=== PATIENT | female | born 1980 | race Caucasian/White ===

== ENCOUNTER 2022-01-22 07:31 | Outpatient (CLI) | payer OTHER, SELFPAY ==
--- OUTSIDE RECORDS SUMMARY | 2022-01-22 07:33 | XMS_ITS | Clinical Summary ---
:1980 Author Organization [place] Address [address] [place] [address] Care Team Providers Name Role Phone No Ref-Primary, Physician Primary Care Provider [phone] Misha Hill PA-C Unavailable Allergies Active Allergy Reactions Severity Noted Date Comments Dust Mite Extract Other (See Comments) 03/25/2008 Ca ts,grass,trees, pollen Medications Medication Sig Dispensed Refills Start Date End Date Status NO ACTIVE MEDICATIONS 0 Active buPROPion (WELLBUTRIN Take 1 tablet (150 30 tablet 1 0 Active XL) 150 MG 24 hr mg) by mouth every tabletIndications: morning Encounter for smoking cessation counseling, Mild episode of recurrent major depressive disorder (H) Active Problems Problem Noted Date Major depression, recurrent 05/04/2019 Overview: Created by Conversion Replacement Utility updated for latest I MO load Insomnia 05/04/2019 Overview: Created by Conversion Anxiety state 05/04/2019 Overview: Created by Conversion Replacement Utility updated for latest I MO load Tubal ligation status 08/15/2015 Anemia of in second trimester 03/21/2015 related carpal tunnel syndrome, antepartum 1 05/18/2014 Abnormal glucose affecting 03/18/2015 Overview: Passed 3hr GTT , first 11/05/2014 Overview: Boy. circ in hospital. Unplanned. Charles lewis BTL, consent signed 04/15/2015 with Juliette Shay MD H/O ROBI Overview: LEEP - In her 20's ? 2010 and 2014 NIL paps. 06/02/19 NIL pap, neg HPV. Plan cotest in 1 year. Immunizations Name Administration Dates Next Due DT (PEDS <7y) 11/24/2004 FLU 6-35 months 02/15/2009 Influenza (IIV3) PF 02/16/2010 Influenza Vaccine IM > 6 months Valent IIV4 02/11/2015 (Alfuria,Fluzone) Td (Adult), Adsorbed 11/24/2004 Tdap (Adult) Unspecified Formulation 04/15/2015, 11/24/2004 Family History Medical History Relation Comments Diabetes Maternal Aunt Lung Cancer Maternal Grandfather Lung Cancer Maternal Grandmother Diabetes Maternal Uncle Diabetes Mother Relation Status Comments Brother Alive Father Alive Maternal Aunt Maternal Grandfather Maternal Grandmother Maternal Uncle Mother Alive Son Alive Social History Tobacco Use Types Packs/Day Years Used Date Current Every Day Smoker 0 Smokeless Tobacco: Never Used Tobacco Cessation: Ready to Quit: Yes; C ounseling Given: Yes Comments: 1/ ppd. Patient is actively t rying to quit Alcohol Use Standard Drinks/Week Comments Yes 0 (1 standard drink = 0.6 oz pure alcoho l) occasionally Alcohol Habits Answer Date Recorded How often do you have a drink containing alcohol? Not asked How many drinks containing alcohol do you have on a Not aske d typical day when you are drinking? How often do you have six or more drinks on one occasion? No t asked Comment: occasionally 03/20/2019 Sex Assigned at Date Recorded Not on file Last Filed Vital Signs Vital Sign Reading Time Taken Comments Blood Pressure 117/68 06/18/2019 8:03 AM DIFFERENTIAL SPECIALIST Pulse 83 06/18/2019 8:03 AM DIFFERENTIAL SPECIALIST Temperature 36.6 ??C (97.9 ??F) 06/18/2019 8:03 AM DIFFERENTIAL SPECIALIST Respiratory Rate 14 06/18/2019 8:03 AM DIFFERENTIAL SPECIALIST Oxygen Saturation 100% 06/02/2019 7:43 AM DIFFERENTIAL SPECIALIST Inhaled Oxygen Concentration - - Weight 98.7 kg (217 lb 8 oz) 06/18/2019 8:03 AM DIFFERENTIAL SPECIALIST Height 177.8 cm (5' 10) 06/02/2019 7:43 AM DIFFERENTIAL SPECIALIST Body Mass Index 31.21 06/02/2019 7:43 AM DIFFERENTIAL SPECIALIST Plan of Treatment Health Maintenance Due Date Last Done Comments ADVANCE CARE PLANNING 1980 ANNUAL REVIEW OF HM ORDERS 1980 COVID-19 Vaccine (#1) 02/08/1980 Pneumococcal Vaccine: 08/07/1985 Pediatrics (0 to 5 Years) and At-Risk Patients (6 to 64 Years) (1 - PCV) HIV SCREENING 08/07/1994 HEPATITIS C SCREENING 08/07/1997 PHQ-9 12/01/2019 06/02/2019 HPV FOLLOW-UP 06/02/2020 06/02/2019 PAP FOLLOW-UP 06/02/2020 06/02/2019, 07/12/2010 PREVENTIVE CARE VISIT 06/02/2020 06/02/2019 INFLUENZA VACCINE (#1) 2022 03/20/2019 (Declined), 02/11/2015, 02/16/2010, Additional history exists DTAP/TDAP/TD IMMUNIZATION 04/15/2025 04/15/2015, 11/24/2004 , (2 - Td or Tdap) 11/24/2004 DEPRESSION ACTION PLAN Completed 06/02/2019 HEPATITIS B IMMUNIZATION Aged Out No long er eligible based on patient 's age to complete this topic IPV IMMUNIZATION Aged Out No longer eligi ble based on patient 's age to complete this topic MENINGITIS IMMUNIZATION Aged Out No longe r eligible based on patient 's age to complete this topic Insurance Payer Benefit Plan / Subscriber ID Effective Dates Phone Addre ss Type Group BCBS BCBS OF [place] [id number] 2018-Stanislav [phone] [address] [address] Indemnity t 0 [place] [address] Care Teams Tech Ed Teacher Relationship Specialty Start Date End Date No Ref-Primary, Physician PCP - General 03/13/19 Misha Hill PA-C Assigned PCP 11/25/20 [id number] JANIE CORDOVA [id number]
--- OUTSIDE RECORDS SUMMARY | 2022-01-22 07:33 | XMS_ITS | Clinical Summary ---
:1980 Author Organization [facility] [place] [address] Care Team Providers Name Role Phone Stephany Stanford MD Primary Care Provider Allergies Active Allergy Reactions Severity Noted Date Comments House Dust Runny Nose 03/25/2008 Cats,grass,tree s, pollen Medications No known medications Active Problems Problem Noted Date Tubal ligation status 08/15/2015 Anemia of in second trimester 03/21/2015 related carpal tunnel syndrome, antepartum 1 05/18/2014 Abnormal glucose affecting 03/18/2015 Overview: Passed 3hr GTT , first 11/05/2014 Overview: Boy. circ in hospital. Unplanned. Charles lewis BTL, consent signed 04/15/2015 with Juliette Shay MD Immunizations Name Administration Dates Next Due Influenza, IIV4 02/11/2015 Td (Age >=7 Years) 11/24/2004 Tdap 04/15/2015 Family History Medical History Relation Name Comments Unknown Father Diabetes Mother Hyperlipidemia Mother Hypertension Mother Relation Name Status Comments Father Mother Social History Tobacco Use Types Packs/Day Years Used Date Former Smoker Smokeless Tobacco: Former User Q uit: 10/08/2014 Tobacco Cessation: Counseling Given: Yes Alcohol Use Standard Drinks/Week Comments No 0 (1 standard drink = 0.6 oz pure alcoho l) Sex Assigned at Date Recorded Not on file Obstetrics History Para Term AB IAB SAB Ectopic Multiple Living Live Births 3 1 1 2 1 1 1 1 Date Outcome GA Total Labor/2nd/3rd Weight Sex Delivery Anes PTL Shari A 1 A5 Name Clin Labor 2008 SAB 5w0 d 2010 IAB 10w 0d Comments: infection following D/C 07/03/2015 Term 3.86 kg (8 M N Living Cong shay with lb 8 oz) D ohm-Murphy Last Filed Vital Signs Vital Sign Reading Time Taken Comments Blood Pressure 111/58 08/15/2015 10:01 AM CDT Pulse 74 08/15/2015 10:01 AM CDT Temperature 36.8 ??C (98.2 ??F) 02/11/2015 10:45 AM CDT Respiratory Rate 16 02/19/2011 5:22 PM CDT Oxygen Saturation 98% 02/11/2015 10:45 AM CDT Inhaled Oxygen Concentration - - Weight 105 kg (231 lb 6.4 oz) 07/01/2015 3:00 PM BINDER ROLLER Height 177 cm (5' 9.69) 05/20/2015 4:13 PM BINDER ROLLER Body Mass Index 33.5 05/20/2015 4:13 PM BINDER ROLLER Plan of Treatment Health Maintenance Due Date Last Done Comments COVID-19 vaccine series (#1) 02/08/1980 Hepatitis C screening for age 18-79 08/07/1997 BMI (ht and wt on same day) for age 18+ 05/20/2016 05/20/19 16 Depression screening for age 12+ 08/14/2016 08/15/2015, 12/2015 Pap test for age 21-65 12/03/2017 12/03/2014 Influenza for age 9-49 01/11/2022 02/11/2015 Tetanus booster 04/15/2025 04/15/2015, 11/24/2004 Tdap Completed 04/15/2015 Results Not on filefrom Last 3 Months Insurance Payer Benefit Plan / Subscriber ID Effective Dates Phone Addre ss Type Group MEDICA [place] MED[place] CHOICE [id number] 2014-[place] [address] [address] [place] [address] Advance Directives Latest Code Status on File Code Status Date Activated Date Inactivated Comments Full Code 03/26/2008 7:25 AM 03/26/2008 3:55 PM Care Teams Right Of Way Appraiser Relationship Specialty Start Date End Date Stephany Stanford MD PCP - General Cardiovascular Disease 12/03/07
--- OUTSIDE RECORDS SUMMARY | 2022-01-22 07:33 | XMS_ITS | Encounter Summary ---
:1980 Author Organization [place] Address [address] [place] [address]. [place] [address] Care Team Providers Name Role Phone No Ref-Primary, Physician Primary Care Provider [phone] Misha Hill PA-C Unavailable [phone] Encounter Details Date Type Department Care Team Description 06/24/2019 Travel Social History Tobacco Use Types Packs/Day Years Used Date Current Every Day Smoker 0 Smokeless Tobacco: Never Used Comments: 1/2 ppd. Patient is actively t rying to [...] Assigned at Date Recorded Not on file documented as of this encounter Plan of Treatment Not on filedocumented as of this encounter Visit Diagnoses Not on filedocumented in this encounter Additional Health Concerns Assessment Noted Time PHQ-9 Depression Total Score: 6 06/02/2019 8:28 AM STAFF REPORTER documented as of this encounter Care Teams Lay Out Former Relationship Specialty Start Date End Date No Ref-Primary, Physician PCP - General 03/13/19 Misha Hill PA-C Assigned PCP 06/07/19 10/10/19 [address] [place] [address] documented as of this encounter
--- OUTSIDE RECORDS SUMMARY | 2022-01-22 07:33 | XMS_ITS | Encounter Summary ---
:1980 Author Organization [place] Address [address] [place] [address] Care Team Providers Name Role Phone No Ref-Primary, Physician Primary Care Provider [phone] Kyung Thornton REFORMATORY ATTENDANT UROLOGIC NURSE Unavailable [phone] Encounter Details Date Type Department Care Team Description 10/12/2020 [facility] Provider, Histor ical Social History Tobacco Use Types Packs/Day Years [...] Not on filedocumented as of this encounter Procedures Procedure Name Priority Date/Time Associated Comments Diagnosis US PELVIC Routine 07/18/2010 12:00 Results for this TRANSABDOMINAL AM STEAM SHOVEL OPERATOR procedure are in the results section. US TRANSVAGINAL PELVIC Routine 07/18/2010 12:00 R esults for this NON-OB AM STEAM SHOVEL OPERATOR procedure are i n the results section. documented in this encounter Results US Pelvis Complete without Transvaginal (07/18/2010 12:00 AM STEAM SHOVEL OPERATOR) Anatomical Region Laterality Modality Abdomen/Pelvis Other Specimen (Source) Anatomical Location Collection Method / Collectio n Time Received Time / Laterality Volume Narrative 07/18/2010 12:00 AM STEAM SHOVEL OPERATOR See Historical Hospital Medical Record f or documentation Procedure Note Provider, Historical - 10/12/2020Formatt ing of this note might be different from the original. See Historical Hospital Medical Record f or documentation Historical Provider IMG US ORDERABLES US Transvaginal Non OB (07/18/2010 12:00 AM STEAM SHOVEL OPERATOR) Anatomical Region Laterality Modality Abdomen/Pelvis Other Specimen (Source) Anatomical Location Collection Method / Collectio n Time Received Time / Laterality Volume Narrative 07/18/2010 12:00 AM STEAM SHOVEL OPERATOR See Historical Hospital Medical Record f or documentation Procedure Note Provider, Historical - 10/12/2020Formatt ing of this note might be different from the original. See Historical Hospital Medical Record f or documentation Historical Provider IMG US ORDERABLES documented in this encounter Visit Diagnoses Not on filedocumented in this encounter Additional Health Concerns Assessment Noted Time PHQ-9 Depression Total Score: 6 06/02/2019 8:28 AM STEAM SHOVEL OPERATOR documented as of this encounter Care Teams Commercial Credit Head Relationship Specialty Start Date End Date No Ref-Primary, Physician PCP - General 03/13/19 Kyung Thornton APRN UROLOGIC NURSE Assigned PCP 10/11/19 11/24/20 [id number] JANIE CORDOVA [id number] documented as of this encounter
--- OUTSIDE RECORDS SUMMARY | 2022-01-22 07:33 | XMS_ITS | Encounter Summary ---
:1980 Author Organization [place] Address [address] [place] [address]. [place] [address] Care Team Providers Name Role Phone No Ref-Primary, Physician Primary Care Provider [phone] Misha Hill PA-C Unavailable [phone] Reason for Visit Reason Onset Date Comments Sinus Problem 09/29/2019 Encounter Details Date Type Department Care Team Description 09/29/2019 E-Visit [facility] Kyung Thornton, Sinus Problem [place] ENTHONE SOLDER STRIPPER ELECTRICAL ENGINEERING DRAFTING OFFICER [facility], [address] [place] [address] [address] [place] [address] [place] [address] [phone] Social History Tobacco Use Types Packs/Day Years [...] on file documented as of this encounter Patient Instructions Patient InstructionsStKyung mccoy APRN ELECTRICAL ENGINEERING DRAFTING OFFICER - 09/29/2019 10:50 AM CDT Images from the original note were not included. Thank you for choosing us for your care. I have placed an order for a prescription so that you can start treatment. View your full visit summary for details by clicking on the link below. Your pharmacist will able to address any questions you may have about the medication. If you're not feeling better within 5-7 days, please schedule an appointment. You can schedule an appointment right here in [facility], or call [phone] If the visit is for the same symptoms as your e-visit, we'll refund the cost of your e-visit if seen within seven days. Sinusitis (Antibiotic Treatment) The sinuses are air-filled spaces within the bones of the face. They connect to the inside of the nose.??Sinusitis??is an inflammation of the tissue that lines the sinuses. Sinusitis can occur during acold. It can also happen due to allergies to pollens and other particles in the air. Sinusitis can cause symptoms of sinus congestion and a feeling of fullness. A sinus infection causes fever, headache, and facial pain. There is often green or yellow fluid draining from the nose or into the back of the throat (post-nasal drip). You have been given antibiotics to treat this condition. Home care ?? Take the full course of antibiotics as instructed. Do not stop taking them, even when you feel better. ?? Drink plenty of water, hot tea, and other liquids. This may help thin nasal mucus. It also may help your sinuses drain fluids. ?? Heat may help soothe painful areas of your face. Use a towel soaked in hot water. Or, patient scheduling coordinator the shower and direct the warm spray onto your face. Using a vaporizer along with a menthol rub at night may also help soothe symptoms.? An??expectorant??with guaifenesin may help thin nasal mucus and help your sinuses drain fluids. ?? You can use an wkub-jph-larqdrq??decongestant,??unless a similar medicine was prescribed to you. Nasal sprays work the fastest. Use one that contains phenylephrine or oxymetazoline. First blow your nose gently. Then use the spray. Do not use these medicines more often than directed on the label. Ifyou do, your symptoms may get worse. You may also take pills that contain pseudoephedrine. Don???t use products that combine multiple medicines. This is because side effects may be increased. Read labels. You can also ask the pharmacist for help. (People with high blood pressure should not use decongestants. They can raise blood pressure.) ?? Jllf-xaa-qqvwqcg??antihistamines??may help if allergies contributed to your sinusitis. ? Do not use nasal rinses or irrigation during an acute sinus infection, unless your healthcare provider tells you to. Rinsing may spread the infection to other areas in your sinuses. ?? Use acetaminophen or ibuprofen to control pain, unless another pain medicine was prescribed to you. If you have chronic liver or kidney disease or ever had a stomach ulcer, talk with your healthcareprovider before using these medicines. (Aspirin should never be taken by anyone under age 18 who is ill with a fever. It may cause severe liver damage.) ?? Don't smoke. This can make symptoms worse. Follow-up care Follow up with your healthcare provider or our staff if you are not better in 1 week. When to seek medical advice Call your healthcare provider if any of these occur: ?? Facial pain or headache that gets worse ?? Stiff neck ?? Unusual drowsiness or confusion ?? Swelling of your forehead or eyelids ?? Vision problems, such as blurred or double vision ?? Fever of??100.4??F (38??C)??or higher, or as directed by your healthcare provider ?? Seizure ?? Breathing problems ?? Symptoms don't go away in 10 days Prevention Here are steps you can take to help prevent an infection: ?? Keep good hand washing habits. ?? Don???t have close contact with people who have sore throats, colds, or other upper respiratory infections. ?? Don???t smoke, and stay away from secondhand smoke. ?? Stay up to date with of your vaccines. Date Last Reviewed: 03/13/2017 ?? 5519-7718 [employer]. [address] [place] [address], [place] [address]. All rights reserved. This information is not intended as a substitute for professional medical care. Always follow your healthcare professional's instructions. documented in this encounter Miscellaneous Notes Telephone Encounter - Kyung Thornton APRN CNP - 09/29/2019 10:59 AM CDT Provider E-Visit time total (minutes): 5 documented in this encounter Plan of Treatment Not on filedocumented as of this encounter Visit Diagnoses Diagnosis Acute non-recurrent sinusitis, unspecifi ed location - Primary documented in this encounter Additional Health Concerns Assessment Noted Time PHQ-9 Depression Total Score: 6 06/02/2019 8:28 AM MANAGER INSTALLATION documented as of this encounter Care Teams Salvage Diver Relationship Specialty Start Date End Date No Ref-Primary, Physician PCP - General 03/13/19 Misha [place] PA-C Assigned PCP 06/07/19 10/10/19 [id number] [place] [address] documented as of this encounter
--- OUTSIDE RECORDS SUMMARY | 2022-01-22 07:34 | XMS_ITS | Encounter Summary ---
:1980 Author Organization [facility] Address [address] [place] [address]. [place] [address] Care Team Providers Name Role Phone No Ref-Primary, Physician Primary Care Provider [phone] Kyung Thornton RAIL SIGNAL WORKER CHARACTER ARTIST Unavailable [phone] Reason for Visit Reason Onset Date Comments Appointment 05/21/2019 Encounter Details Date Type Department Care Team Description 05/21/2019 Telephone [facility] Misha Hill, Appointment Antonio DUNCAN [address] [place] [address] [place] [address] [place] [address] [phone] Social History Tobacco Use Types Packs/Day Years Used Date Current Every Day Smoker 0 Smokeless Tobacco: Never Used Comments: 1/2 ppd Alcohol Use Standard Drinks/Week Comments Yes 0 [...] on file documented as of this encounter Miscellaneous Notes Telephone Encounter - Martha De La Rosa - 05/21/2019 1:59 PM CST Patient is scheduled for Name: Nancy Kemp Date: 06/02/2019 Status: Scheduled Time: 3:00 PM Length: 40 Visit Type: PHYSICAL [122] Copay: $0.00 Provider: Misha Hill PA-C Department: FAMILY PRACTICE Appointment needs to be changed scheduled conflict in provider schedule Martha De La Rosa/REMA ERMAKING SUPERVISOR documented in this encounter Plan of Treatment Not on filedocumented as of this encounter Visit Diagnoses Not on filedocumented in this encounter Care Teams [employer] Flatbed Driver Relationship Specialty Start Date End Date No Ref-Primary, Physician PCP - General 03/13/19 Kyung Thornton APRN CHARACTER ARTIST Assigned PCP 02/19/19 06/06/19 [id number] JANIE CORDOVA [address] documented as of this encounter
--- OUTSIDE RECORDS SUMMARY | 2022-01-22 07:34 | XMS_ITS | Encounter Summary ---
:1980 Author Organization [facility] Address [address] [place] [address]. [place] [address] Care Team Providers Name Role Phone No Ref-Primary, Physician Primary Care Provider [phone] Kyung Thornton APRN PRIVATE EQUITY ASSOCIATE Unavailable [phone] Encounter Details Date Type Department Care Team Description 06/02/2019 Travel Social History Tobacco Use Types Packs/Day [...] Depression Total Score: 6 06/02/2019 8:28 AM SHIP JOINER documented as of this encounter Care Teams Finance Assistant Relationship Specialty Start Date End Date No Ref-Primary, Physician PCP - General 03/13/19 Kyung Thornton APRN PRIVATE EQUITY ASSOCIATE Assigned PCP 02/19/19 06/06/19 [id number] [place] [address] documented as of this encounter
--- OUTSIDE RECORDS SUMMARY | 2022-01-22 07:34 | XMS_ITS | Encounter Summary ---
:1980 Author Organization [place] Address [address] [place] [address]. [place] [address] Care Team Providers Name Role Phone No Ref-Primary, Physician Primary Care Provider [phone] Misha Hill PA-C Unavailable [phone] Encounter Details Date Type Department Care Team Description 06/18/2019 Travel Social History Tobacco Use Types Packs/Day [...] Depression Total Score: 6 06/02/2019 8:28 AM GOLF TECHNICIAN documented as of this encounter Care Teams [employer] Relationship Specialty Start Date End Date No Ref-Primary, Physician PCP - General 03/13/19 Misha Hill PA-C Assigned PCP 06/07/19 10/10/19 [address] [place] [address] documented as of this encounter
--- OUTSIDE RECORDS SUMMARY | 2022-01-22 07:34 | XMS_ITS | Encounter Summary ---
:1980 Author Organization [place] Address [address] [place] [address]. [place] [address] Care Team Providers Name Role Phone No Ref-Primary, Physician Primary Care Provider [phone] Misha Hill PA-C Unavailable [phone] Reason for Referral Nutrition (Routine) - Closed Specialty Diagnoses / Procedures Referred By Contact Refer red To Contact Diagnoses Hypoglycemia Shakiness Diaphoresis Pau Harley APRN M [facility] [address] [place], [place] [address] [place] [address] Phone: Fax: Referral ID Status Reason Start Date Expiration Date Visits Requ ested Visits Authorized [id number] Closed 06/30/2019 06/29/2020 1 1 [employer] Encounter Details Date Type Department Care Team Description 06/24/[address] [facility] Hypoglycemia; Laboratory [facility]; [address] [facility] [place], [place] [phone] Social History Tobacco Use Types Packs/Day Years [...] documented as of this encounter Miscellaneous Notes Result Encounter Note - Pau Harley APRN CNP - 06/24/2019 8:15 AM [employer] Nancy, Your lab results did not show any insulin abnormalities. Glucose was normal at 96. I usually do not have any available openings on my schedule for 3 months but I would like to review your glucose, food, and symptom records. I will have you schedule a follow up with the diabetes ed/medicine tech in our clinic, Stephany Lind, to go over these records. Stephany will let me know results after you see her and I'll let you know what I recommend. I'll place the referral and the diabetes ed department will reach out to you to schedule this appointment. Pau Harley NP Endocrinology [employer] Addendum Note - Pau Harley APRN CNP - 06/24/2019 8:15 AM [employer] Addended by: PAU HARLEY on: 06/30/2019 08:12 AM Modules accepted: Orders [employer] documented in this encounter Plan of Treatment Scheduled Referrals Name Type Priority Associated Diagnoses Order S chedule NUTRITION REFERRAL Referral Routine Hypoglycemia Ordered: 06/30/2019 Shakiness Diaphoresis documented as of this encounter Procedures Procedure Name Priority Date/Time Associated Diagnosis Comme nts INSULIN GROWTH FACTOR 1 Routine 06/24/2019 8:00 Hypoglyc emia Results for this BY IMMUNOASSAY AM [employer] Shakiness procedure are in Diaphoresis the results section. PROINSULIN Routine 06/24/2019 8:00 Hypoglycemia Results for this AM [employer] Shakiness procedure are in Diaphoresis the results section. INSULIN LEVEL Routine 06/24/2019 8:00 Hypoglycemia Results for this AM [employer] Shakiness procedure are in Diaphoresis the results section. LIPID REFLEX TO DIRECT Routine 06/24/2019 8:00 Hypoglyce amando Results for this LDL PANEL AM [employer] Shakiness procedure are in Diaphoresis the results section. INSULIN ANTIBODY Routine 06/24/2019 8:00 Hypoglycemia Results for this AM [employer] Shakiness procedure are in Diaphoresis the results section. CORTISOL Routine 06/24/2019 8:00 Hypoglycemia Results for this AM [employer] procedure are i n the results section. C-PEPTIDE Routine 06/24/2019 8:00 Hypoglycemia Results for this AM [employer] Shakiness procedure are in Diaphoresis the results section. BETA HYDROXYBUTYRATE Routine 06/24/2019 8:00 Hypoglycemi a Results for this LEVEL, SENDOUT AM [employer] Shakiness procedure are in Diaphoresis the results section. GLUCOSE Routine 06/24/2019 8:00 Hypoglycemia Results for this AM [employer] Shakiness procedure are in Diaphoresis the results section. documented in this encounter Results Cortisol (06/24/2019 8:00 AM [employer]) athologist Signature Cortisol Serum 6.2 4 - 22 06/25/2019 [facility] ug/dL 1:35 AM [facility] Comment: 8 AM Cortisol Reference Range = 4-22 ug/ dL 4 PM Cortisol Reference Range = 3-17 ug/ dL Specimen Anatomical Collection Method Collection Time Receive d Time (Source) Location / / Volume Laterality 06/24/2019 8:00 AM 0 8:01 [employer] AM [employer] Pau Harley APRN FRAUD ANALYST LAB - BLOOD ORDERABLES Performing Organization Address City/[facility]/ZIP Code Phon e Number [address] C-peptide (06/24/2019 8:00 AM [employer]) athologist Signature C Peptide 2.3 0.9 - 6.9 06/25/2019 [facility] ng/mL 10:19 AM [facility] Specimen Anatomical Collection Method Collection Time Receive d Time (Source) Location / / Volume Laterality Blood specimen 06/24/2019 8:00 AM 020 8:01 (specimen) [employer] AM [employer] Pau Harley APRN, CNP LAB - BLOOD ORDERABLES Performing Organization Address City/[facility]/ZIP Code Phon e Number [address] Glucose (06/24/2019 8:00 AM [employer]) athologist [facility] Glucose 96 70 - 99 06/24/2019 [facility] mg/dL 1:15 PM [employer] [facility] Comment: Fasting specimen Specimen Anatomical Collection Method Collection Time Receive d Time (Source) Location / / Volume Laterality Blood specimen 06/24/2019 8:00 AM 020 8:01 (specimen) [employer] AM [employer] Pau Tashia Harley APRN FRAUD ANALYST LAB - BLOOD ORDERABLES Performing Organization Address City/[facility]/ZIP Code Phon e Number [facility] [address] [place] [address] Insulin antibody (06/24/2019 8:00 AM [employer]) [facility] Insulin <0.4 0.0 - 0.4 06/26/2019 [place] Antibodies U/mL 5:01 PM [employer] [facility] Comment: (Note) INTERPRETIVE INFORMATION: Insulin Antibo dy A value greater than 0.4 Kronus Units/mL is considered positive for Insulin Antibody. Kronus un its are arbitrary. Kronus Units = U/mL. This assay is intended for the semi-sheldon titative determination of antibodies to endogenou s insulin or antibodies to exogenous insulin in human serum. Antibodies to exogenous insulin therapies may be de tected using this method. The magnitude of the measured re sult is not related to disease progression. Results should b e interpreted within the context of clinical symptoms. Performed by [facility], [address] [place] [id number] www.[facility], Fabian Larsen MD, Lab. Director Specimen Anatomical Collection Method Collection Time Receive d Time (Source) Location / / Volume Laterality Blood specimen 06/24/2019 8:00 AM 020 8:01 (specimen) [employer] AM [employer] Pau Harley APRN, CNP LAB - BLOOD ORDERABLES Performing Organization Address City/[facility]/ZIP Code Phon e Number [facility] [address] [place] [address] Insulin Growth Factor 1 by Immunoassay (06/24/2019 8:00 AM [employer]) athologist [facility] Ins Growth 217 78 - 274 06/26/2019 [facility] ng/ml 1:58 PM [facility] Specimen Anatomical Collection Method Collection Time Receive d Time (Source) Location / / Volume Laterality Blood specimen 06/24/2019 8:00 AM 020 8:01 (specimen) [employer] AM [employer] Paujuliana Harley APRN, CNP LAB - BLOOD ORDERABLES Performing Organization Address City/[facility]/ZIP Code Phon e Number [address] Insulin level (06/24/2019 8:00 AM [employer]) athologist Signature Insulin 10.0 3 - 25 mU/L 06/24/2019 [facility] 3:58 PM [facility] Specimen Anatomical Collection Method Collection Time Receive d Time (Source) Location / / Volume Laterality Blood specimen 06/24/2019 8:00 AM 020 8:01 (specimen) [employer] AM [employer] Pau Harley APRN, CNP LAB - BLOOD ORDERABLES Performing Organization Address City/[facility]/ZIP Code Phon e Number [address] Proinsulin (06/24/2019 8:00 AM [employer]) athologist Signature Proinsulin 3.2 <=8.0 06/25/2019 [facility] pmol/L 3:06 PM [facility] Comment: (Note) INTERPRETIVE INFORMATION: Proinsulin, In tact Proinsulin, Intact: Fasting intact proin sulin values above the reference interval indicate a possib le insulin secreting pancreatic tumor (insulinoma) in patients with hypoglycemia. Fasting intact proinsulin values range from 3 to 50 pmol/L in patients with untreated type 2 diabetes. Performed by [facility], [address] [place] [id number] www.[facility], Fabian Larsen MD, Lab. Director Specimen Anatomical Collection Method Collection Time Receive d Time (Source) Location / / Volume Laterality Blood specimen 06/24/2019 8:00 AM 020 8:01 (specimen) [employer] AM [employer] Pau Harley APRN, CNP LAB - BLOOD ORDERABLES Performing Organization Address City/[facility]/ZIP Code Phon e Number [facility] [address] [address] Beta hydroxybutyrate level (06/24/2019 8:00 AM [employer]) [facility] gist Method Time Signature Betahydroxybutyrate 0.5 0.0 - 3.0 06/25/2019 [place] mg/dL 12:33 PM [facility] Comment: (Note) Performed by [facility], [address] [place] [address],[place] [id number] www.[facility], Fabian Larsen MD, Lab. Director Specimen Anatomical Collection Method Collection Time Receive d Time (Source) Location / / Volume Laterality Blood specimen 06/24/2019 8:00 AM 020 8:01 (specimen) [employer] AM [employer] Pau Harley APRN FRAUD ANALYST LAB - BLOOD ORDERABLES Performing Organization Address City/State/ZIP Code Phon e Number [address] [phone] (ABNORMAL) Lipid panel reflex to direct LDL Fasting (06/24/2019 8:00 AM [employer]) Analysis Performed At [facility] logist Time Signature Cholesterol 176 <200 mg/dL 06/24/2019 [place] 1:19 PM [facility] Triglycerides 177 (H) <150 mg/dL 06/24/2019 [place] 1:25 PM [facility] Comment: Borderline high: ??150-199 mg/dl High: ? 200-499 mg/dl Very high: ? >499 mg/dl Fasting specimen HDL Cholesterol 41 (L) >49 mg/dL 06/24/2019 1:28 PM [facility] LDL Cholesterol 100 (H) <100 mg/dL 06/24/2019 1:28 PM [facility] Comment: Desirable: <100 mg/dl Non HDL Cholesterol 135 (H) <130 mg/dL 06/24/2019 1:28 PM [facility] Comment: Above Desirable: ??130-159 mg/dl Borderline high: ??160-189 mg/dl High: ? 190-219 mg/dl Very high: ? >219 mg/dl Specimen Anatomical Collection Method Collection Time Receive d Time (Source) Location / / Volume Laterality Blood specimen 06/24/2019 8:00 AM 020 8:01 (specimen) [employer] AM [employer] Pau Harley WINE SPECIALIST FRAUD ANALYST LAB - BLOOD ORDERABLES Performing Organization Address City/State/ZIP Code Phon e Number [facility] [address] [place] [address] documented in this encounter Visit Diagnoses Diagnosis Hypoglycemia Hypoglycemia, unspecified Shakiness Abnormal involuntary movements Diaphoresis Generalized hyperhidrosis documented in this encounter Additional Health Concerns Assessment Noted Time PHQ-9 Depression Total Score: 6 06/02/2019 8:28 AM [employer] documented as of this encounter Care Teams Converter Supervisor Relationship Specialty Start Date End Date No Ref-Primary, Physician PCP - General 03/13/19 Misha Hill PA-C Assigned PCP 06/07/19 10/10/19 [id number] [place] [address] documented as of this encounter
--- OUTSIDE RECORDS SUMMARY | 2022-01-22 07:34 | XMS_ITS | Encounter Summary ---
:1980 Author Organization [place] Address [address] [place] [address]. [place] [address] Care Team Providers Name Role Phone No Ref-Primary, Physician Primary Care Provider [phone] Kyung Thornton ESTIMATOR PROJECT MANAGER ALCOHOL STILL OPERATOR Unavailable [phone] Encounter Details Date Type Department Care Team Description 03/23/2019 Travel Social History Tobacco Use Types Packs/Day [...] on filedocumented in this encounter Care Teams Baker Biscuit Relationship Specialty Start Date End Date No Ref-Primary, Physician PCP - General 03/13/19 Kyung Thornton APRN ALCOHOL STILL OPERATOR Assigned PCP 02/19/19 06/06/19 [id number] [place] [address] documented as of this encounter
--- OUTSIDE RECORDS SUMMARY | 2022-01-22 07:34 | XMS_ITS | Encounter Summary ---
:1980 Author Organization [place] Address [address] [place] [address]. [place] [address] Care Team Providers Name Role Phone No Ref-Primary, Physician Primary Care Provider [phone] Kyung Thornton PAPER GOODS MACHINE SET UP OPERATOR MACHINE ROOM ENGINEER Unavailable [phone] Reason for Visit Reason Comments Physical Smoking Cessation Encounter Details Date Type Department Care Team Description 06/02/2019 Office Visit [facility] Misha Hill general medical examination at a health care facility (Primary Dx); Clinic Antonio Parker PA-C Mild episode of recurrent major depressi ve disorder (H); [place] [address] [facility] Encounter for smoking cessation counseli ; [address], [address] [place] [address] Cervical cancer screening [place], [place] [phone] (Wo rk) [id number] [phone] Social History Tobacco Use Types Packs/Day Years Used Date Current Every Day Smoker 0 Smokeless Tobacco: Never Used Tobacco Cessation: Ready to Quit: Yes Comments: 1/2 ppd Alcohol Use Standard Drinks/Week [...] on file documented as of this encounter Last Filed Vital Signs Vital Sign Reading Time Taken Comments Blood Pressure 122/78 06/02/2019 7:43 AM CELLOPHANE WORKER Pulse 78 06/02/2019 7:43 AM CELLOPHANE WORKER Temperature 36.8 ??C (98.2 ??F) 06/02/2019 7:43 AM CELLOPHANE WORKER Respiratory Rate 14 06/02/2019 7:43 AM CELLOPHANE WORKER Oxygen Saturation 100% 06/02/2019 7:43 AM CELLOPHANE WORKER Inhaled Oxygen Concentration - - Weight 98.4 kg (217 lb) 06/02/2019 7:43 AM CELLOPHANE WORKER Height 177.8 cm (5' 10) 06/02/2019 7:43 AM CELLOPHANE WORKER Body Mass Index 31.14 06/02/2019 7:43 AM CELLOPHANE WORKER documented in this encounter Patient Instructions Patient InstructionsJuliette Barboza CMA - 06/02/2019 7:40 AM CST Preventive Health Recommendations Female Ages 26 - 39 Yearly exam: See your health care provider every year in order to ??? Review health changes. ??? Discuss preventive care. ??? Review your medicines if you your doctor has prescribed any. Until age 30: Get a Pap test every three years (more often if you have had an abnormal result). After age 30: Talk to your doctor about whether you should have a Pap test every 3 years or have a Pap test with HPV screening every 5 years. You do not need a Pap test if your uterus was removed (hysterectomy) and you have not had cancer. You should be tested each year for STDs (sexually transmitted diseases), if you're at risk. Talk to your provider about how often to have your cholesterol checked. If you are at risk for diabetes, you should have a diabetes test (fasting glucose). Shots: Get a flu shot each year. Get a tetanus shot every 10 years. Nutrition: ??? Eat at least 5 servings of fruits and vegetables each day. ??? Eat whole-grain bread, whole-wheat pasta and brown rice instead of white grains and rice. ??? Get adequate Calcium and Vitamin D. Lifestyle ??? Exercise at least 150 minutes a week (30 minutes a day, 5 days of the week). This will help you control your weight and prevent disease. ??? Limit alcohol to one drink per day. ??? No smoking. ?? Wear sunscreen to prevent skin cancer. ?? See your dentist every six months for an exam and cleaning. OPHANE WORKER documented in this encounter Progress Notes Misha Hill PA-C - 06/02/2019 7:40 AM CST SUBJECTIVE: CC: Xander Kemp is an 38 year old woman who presents for preventive health visit. Healthy Habits: Getting at least 3 servings of Calcium per day: Yes Bi-annual eye exam: NO Dental care twice a year: Yes Sleep apnea or symptoms of sleep apnea: None Diet: Regular (no restrictions) Frequency of exercise: None Taking medications regularly: Yes Medication side effects: Not applicable PHQ-2 Total Score: 1 Additional concerns today: No Smoking Chantix- tried years ago but had nightmares. Has tried patches- burning on arm, felt dizzy. Not sleeping well now due to her 3 year old with some sleep issues Was on Effexor for mood at one point. Smoke 1 pack every other day Today's PHQ-2 Score: PHQ-2 (??1999 Pfizer) 06/01/2019 Q1: Little interest or pleasure in doing things 0 Q2: Feeling down, depressed or hopeless 1 PHQ-2 Score 1 Q1: Little interest or pleasure in doing things Not at all Q2: Feeling down, depressed or hopeless Several days PHQ-2 Score 1 Abuse: Current or Past(Physical, Sexual or Emotional)- No Do you feel safe in your environment? Yes Social History Tobacco Use ??? Smoking status: Current Every Day Smoker Packs/day: 0.00 ??? Smokeless tobacco: Never Used ??? Tobacco comment: 05/14 ppd Substance Use Topics ??? Alcohol use: Yes Comment: occasionally No flowsheet data found. Reviewed orders with patient. Reviewed health maintenance and updated orders accordingly - Yes Labs reviewed in [facility] Mammogram Screening: Patient under age 50, mutual decision reflected in health maintenance. Pertinent mammograms are reviewed under the imaging tab. History of abnormal Pap smear: YES - other categories - see link Cervical Cytology Screening Guidelines In had LEEP, colp's but PAP's normal since. Reviewed and updated as needed this visit by clinical staff Tobacco Allergies Meds Med Hx Surg Hx Fam Hx Soc Hx Reviewed and updated as needed this visit by Provider Review of Systems Constitutional: Negative for chills and fever. HENT: Negative for congestion, ear pain, hearing loss and sore throat. Eyes: Positive for visual disturbance. Negative for pain. Respiratory: Negative for cough and shortness of breath. Cardiovascular: Negative for chest pain, palpitations and peripheral edema. Gastrointestinal: Negative for abdominal pain, constipation, diarrhea, heartburn, hematochezia and nausea. Breasts: Negative for tenderness, breast mass and discharge. Genitourinary: Positive for frequency. Negative for dysuria, genital sores, hematuria, pelvic pain, urgency, vaginal bleeding and vaginal discharge. Musculoskeletal: Positive for arthralgias. Negative for joint swelling and myalgias. Skin: Negative for rash. Neurological: Positive for dizziness and paresthesias. Negative for weakness and headaches. Psychiatric/Behavioral: Negative for mood changes. The patient is nervous/anxious. OBJECTIVE: BP 122/78 (BP Location: Right arm, Patient Position: Chair, Cuff Size: Adult Regular) Pulse 78 Temp 98.2 ??F (36.8 ??C) (Oral) Resp 14 Ht 1.778 m (5' 10) Wt 98.4 kg (217 lb) LMP 05/25/2019(Exact Date) SpO2 100% BMI 31.14 kg/m?? Physical Exam GENERAL: healthy, alert and no distress EYES: Eyes grossly normal to inspection, PERRL and conjunctivae and sclerae normal HENT: ear canals and TM's normal, nose and mouth without ulcers or lesions NECK: no adenopathy, no asymmetry, masses, or scars and thyroid normal to palpation RESP: lungs clear to auscultation - no rales, rhonchi or wheezes BREAST: normal without masses, tenderness or nipple discharge and no palpable axillary masses or adenopathy CV: regular rate and rhythm, normal S1 S2, no S3 or S4, no murmur, click or rub, no peripheral edemaand peripheral pulses strong ABDOMEN: soft, nontender, no hepatosplenomegaly, no masses and bowel sounds normal (female): normal female external genitalia, normal urethral meatus, vaginal mucosa pink, moist, well rugated, and normal cervix/adnexa/uterus without masses or discharge MS: no gross musculoskeletal defects noted, no edema SKIN: no suspicious lesions or rashes NEURO: Normal strength and tone, mentation intact and speech normal PSYCH: mentation appears normal, affect normal/bright Diagnostic Test Results: Labs reviewed in Epic ASSESSMENT/PLAN: 1. Routine general medical examination at a health care facility Normal exam. She declined additional labs today including fasting lipids, glucose. 2. Mild episode of recurrent major depressive disorder (H) She has taken medication in the past for her mood. Will use Wellbutrin today also for smoking cessation. PHQ-9 SCORE 06/02/2019 PHQ-9 Total Score 6 - buPROPion (WELLBUTRIN XL) 150 MG 24 hr tablet; Take 1 tablet (150 mg) by mouth every morning Dispense: 30 tablet; Refill: 1 3. Encounter for smoking cessation counseling Discussed mechanism of action of medication, proper dosing, potential side effects and appropriate follow up. - buPROPion (WELLBUTRIN XL) 150 MG 24 hr tablet; Take 1 tablet (150 mg) by mouth every morning Dispense: 30 tablet; Refill: 1 4. Cervical cancer screening - Pap imaged thin layer screen with HPV - recommended age 30 - 65 years (select HPV order below) - HPV High Risk Types DNA Cervical COUNSELING: Reviewed preventive health counseling, as reflected in patient instructions Estimated body mass index is 31.14 kg/m?? as calculated from the following: Height as of this encounter: 1.778 m (5' 10). Weight as of this encounter: 98.4 kg (217 lb). Weight management plan: Discussed healthy diet and exercise guidelines reports that she has been smoking. She has been smoking about 0.00 packs per day. She has never used smokeless tobacco. Tobacco Cessation Action Plan: Pharmacotherapies : Zyban/Wellbutrin Counseling Resources: ATP IV Guidelines Pooled Cohorts Equation Calculator Breast Cancer Risk Calculator FRAX Risk Assessment ICSI Preventive Guidelines Dietary Guidelines for Americans, 2010 USDA's MyPlate ASA Prophylaxis Lung CA Screening Misha Hill PA-C [facility] OPHANE WORKER documented in this encounter Plan of Treatment Not on filedocumented as of this encounter Procedures Procedure Name Priority Date/Time Associated Diagnosis Comme nts HPV HIGH RISK TYPES Routine 06/02/2019 12:56 PM Cervical cance r Results for this DNA CERVICAL CELLOPHANE WORKER screening procedure are i n the results section. PAP IMAGED THIN Routine 06/02/2019 8:04 AM Cervical cancer Res ults for this LAYER SCREEN CELLOPHANE WORKER screening procedure are i n the results section. documented in this encounter Results HPV High Risk Types DNA Cervical (06/02/2019 12:56 PM CELLOPHANE WORKER) [facility] Method Time Signature HPV Source SurePath 06/02/2019 [facility] 8:04 AM CELLOPHANE WORKER [facility] HPV 16 DNA Negative NEG^Negat 06/09/2019 [facility] 7[facility] CELLOPHANE WORKER [facility] HPV 18 DNA Negative NEG^Negat 06/09/2019 [facility] 7:50 AM CELLOPHANE WORKER [facility] Other HR HPV Negative NEG^Negat 06/09/2019 [facility] 7:50 AM CELLOPHANE WORKER [facility] Final This 06/09/2019 [facility] patient's 7:50 AM [facility] sample is [facility] negative for CAMPUS HPV DNA. Comment: This test was developed and its performa nce characteristics determined by the [facility], [facility]. It has not been cleared or approved by the FDA. The laboratory is regulated under CLIA as qualified to perform high-compl exity testing. This test is used for clinical purposes. It should not be rega rded as investigational or for research. (Note) METHODOLOGY: ??The [facility] syst em uses automated extraction, simultaneous amplification of HPV (L1 re gion) and beta-globin, ?? followed by ??real time detection of flu orescent labeled HPV and beta globin using specific oligonucleotide pr obes . The test specifically identifies types HPV 16 DNA and HPV 18 D NA while concurrently detecting the rest of the high risk type s (31, 33, 35, 39, 45, 51, 52, 56, 58, 59, 66 or 68). COMMENTS: ??This test is not intended fo r use as a screening device for women under age 30 with normal cervi mery cytology. ??Results should be correlated with cytologic and histolo gic findings. Close clinical followup is recommended. Specimen Description Cervical Cells 06/02/2019 8:0 4 AM CELLOPHANE WORKER [facility] Comment: [id number] Specimen Anatomical Collection Method Collection Time Receive d Time (Source) Location / / Volume Laterality Cervical Cells 06/02/2019 12:56 0 1:02 PM CELLOPHANE WORKER PM CELLOPHANE WORKER Misha Hill PA-C LAB - BLOOD ORDERABLES Performing Organization Address City/State/ZIP Code Phon e Number [address] [id number] Pap imaged thin layer screen with HPV - recommended age 30 - 65 years (select HPV order below) (06/02/2019 8:04 AM CELLOPHANE WORKER) Component Value Ref Test Analysis Performed At [facility] Range Method Time Signature PAP NIL COPATH Copath Report COPATH Patient Name: XANDER KEMP MR#: [id number] Specimen #: [id number] Collected: 06/02/2019 Received: 06/03/2019 Reported: 06/07/2019 08:07 Ordering Phy(s): MISHA HILL For improved result formatting, select 'View Enhanced Report Format' under Linked Documents section. SPECIMEN/STAIN PROCESS: Pap imaged thin layer prep screening (Surepath, FocalPoint w ith guided screening) ? Pap-Cyto x 1, HPV ordered x 1 SOURCE: Cervical, endocervical ---- Pap imaged thin layer prep screening (Surepath, FocalPoint with guided screening) SPECIMEN ADEQUACY: Satisfactory for evaluation. -Transformation zone component absent. CYTOLOGIC INTERPRETATION: Negative for intraepithelial lesion or malignancy Electronically signed out by: JOSE DANIEL Fry (ASCP) CLINICAL HISTORY: Papanicolaou Test Limitations: ??Cervical cytology is a sc reening test with limited sensitivity; regular screening is critical for cancer prevention; Pap tests are p rimarily effective for the diagnosis/prevention of squamous cell carcinoma, not adenocarcinomas or other cancer s. COLLECTION SITE: Client: ??[facility] Location: [facility] (R) The technical component of this testing was completed at the [facility], with the professional compo nent performed at the [facility], [address] [place] [address], [place] [address] ([phone]) Specimen (Source) Anatomical Collection Method Collection Time Re ceived Time Location / / Volume Laterality Cytologic 06/02/2019 8:04 06/03/2019 material AM CELLOPHANE WORKER 10:30 AM CELLOPHANE WORKER (specimen) Misha Hill PA-C LAB - OPTIME CLINICAL SPECIM EN Performing Organization Address City/State/ZIP Code Phon e Number [place] documented in this encounter Visit Diagnoses Diagnosis Routine general medical examination at a health care facility - Primary Mild episode of recurrent major depressi ve disorder (H) Encounter for smoking cessation counseli ng Counseling on substance use and abuse Cervical cancer screening Screening for malignant neoplasm of the cervix documented in this encounter Additional Health Concerns Assessment Noted Time PHQ-9 Depression Total Score: 6 06/02/2019 8:28 AM CELLOPHANE WORKER documented as of this encounter Care Teams Cloth Booker Relationship Specialty Start Date End Date No Ref-Primary, Physician PCP - General 03/13/19 Kyung Thornton, SHARI MACHINE ROOM ENGINEER Assigned PCP 02/19/19 06/06/19 [id number] [address] [id number] documented as of this encounter
--- OUTSIDE RECORDS SUMMARY | 2022-01-22 07:34 | XMS_ITS | Encounter Summary ---
:1980 Author Organization [place] Address [address] [place] [address]. [place] [address] Care Team Providers Name Role Phone No Ref-Primary, Physician Primary Care Provider [phone] Kyung Thornton COLLECTION CARD CLERK TUMBLER OPERATOR Unavailable [phone] Encounter Details Date Type Department Care Team Description 03/20/2019 Travel Social History Tobacco Use Types Packs/Day [...] on filedocumented in this encounter Care Teams Drill Press Tender Relationship Specialty Start Date End Date No Ref-Primary, Physician PCP - General 03/13/19 Kyung Thornton APRN TUMBLER OPERATOR Assigned PCP 02/19/19 06/06/19 [id number] [address] [place] [address] documented as of this encounter
--- OUTSIDE RECORDS SUMMARY | 2022-01-22 07:34 | XMS_ITS | Encounter Summary ---
:1980 Author Organization [facility] Address [address] [place] [address]. [place] [address] Care Team Providers Name Role Phone No Ref-Primary, Physician Primary Care Provider [phone] Kyung Thornton APRN SUPERVISOR PLATE [employer]ING Unavailable [phone] Reason for Referral Consultation (Routine) - Closed Specialty Diagnoses / Procedures Referred By Contact Refer red To Contact Diagnoses Hypoglycemia Kyung Thornton M [facility] SHARI ROGER MINCO [address] [facility] [address] [place] [address] [place] [address] Phone: Fax: Referral ID Status Reason Start Date Expiration Date Visits Requ ested Visits Authorized [id number] Closed 03/20/2019 03/19/2020 1 1 ER SETTER RESISTANCE MACHINE Reason for Visit Reason Comments Hypoglycemia at least the past 9 months p atient has been experiencing low BS around 47-70 starting around 5pm wh en patient gets home from work. Has been happening daily. Syptoms: sh akey and cold sweats. Very anxious feeling. Feels nauseated. Encounter Details Date Type Department Care Team Description 03/20/2019 Office Visit [facility] Kyung Thornton cemia (Primary Dx); [facility] [place] SHARI Butler CNP Screening for endocrine disorder [place] [address] [facility], [address] [place] [phone] Social History Tobacco Use Types Packs/Day Years Used Date Current Every Day Smoker 0 Smokeless Tobacco: Never Used Comments: 2 ppd Alcohol Use Standard Drinks/Week Comments Yes [...] Sign Reading Time Taken Comments Blood Pressure 126/72 03/20/2019 2:10 PM WELDER SETTER RESISTANCE MACHINE Pulse 76 03/20/2019 2:10 PM WELDER SETTER RESISTANCE MACHINE Temperature 36.8 ??C (98.2 ??F) 03/20/2019 2:10 PM WELDER SETTER RESISTANCE MACHINE Respiratory Rate 16 03/20/2019 2:10 PM WELDER SETTER RESISTANCE MACHINE Oxygen Saturation - - Inhaled Oxygen Concentration - - Weight 99.4 kg (219 lb 3.2 oz) 03/20/2019 2:10 PM WELDER SETTER RESISTANCE MACHINE Height 177.8 cm (5' 10) 03/20/2019 2:10 PM WELDER SETTER RESISTANCE MACHINE Body Mass Index 31.45 03/20/2019 2:10 PM WELDER SETTER RESISTANCE MACHINE documented in this encounter Progress Notes Kyung Thornton, SHARI SU[employer] - 03/20/2019 2:00 PM CST Subjective Nancy Kemp is a 38 year old female who presents to clinic today for the following health issues: HPI Concern - LOW BS readings. Onset: 9 months. Worse in the past 2 weeks. ?? Description: Low BS readings between 47-70 ?? Intensity: NO PAIN ?? Progression of Symptoms: worsening ?? Accompanying Signs & Symptoms: Fatigue, shaky,cold sweats, very anxious feeling, nauseated and urinary frequency. ?? Previous history of similar problem: No ?? Precipitating factors: Worsened by: NOTHING ?? Alleviating factors: Improved by: IF PATIENT EATS SOMETHING Therapies Tried and outcome: eat fruit snacks or drink juice or pop. For the last few months in the evening, around 5:00 pm, she starts to not feel well. She starts to feel hungry, cold sweats, anxious. When she checks her blood sugar is in the 40-70s. If she eats something numbers improve and symptoms start to gradually resolve. She has been more tired. She occasionally checks her blood sugar during the day (not fasting) and will get numbers in the 120-130s. Mom, maternal aunt and uncles have T2DM. She has noticed that lately she has had increased thirst, feels parched all the time and has been urinating more often. Her skin has been dry and if she gets a sore, such as a mosquito bite, they take a long time to heal. She is cold all the time and has had constipation for as long as she can remember. No hx of gestational diabetes. Current Outpatient Medications Medication Sig Dispense Refill ??? Cetirizine HCl (ZYRTEC PO) ??? NO ACTIVE MEDICATIONS ??? ondansetron (ZOFRAN) 4 MG tablet Take 1 tablet by mouth every 8 hours as needed for nausea. (Patient not taking: Reported on 03/20/2019) 6 tablet 0 ??? traMADol (ULTRAM) 50 MG tablet Take 1-2 tablets by mouth every 6 hours as needed for pain. (Patient not taking: Reported on 03/20/2019) 15 tablet 0 No Known Allergies Reviewed and updated as needed this visit by Provider Review of Systems ROS COMP: Constitutional, HEENT, cardiovascular, pulmonary, gi and gu systems are negative, except as otherwise noted. Objective BP 126/72 (BP Location: Right arm, Patient Position: Sitting, Cuff Size: Adult Regular) Pulse 76 Temp 98.2 ??F (36.8 ??C) (Oral) Resp 16 Ht 1.778 m (5' 10) Wt 99.4 kg (219 lb 3.2 oz) LMP 03/02/2019 BMI 31.45 kg/m?? Body mass index is 31.45 kg/m??. Physical Exam GENERAL: healthy, alert and no distress NECK: no adenopathy, no asymmetry, masses, or scars and thyroid normal to palpation RESP: lungs clear to auscultation - no rales, rhonchi or wheezes CV: regular rate and rhythm, normal S1 S2, no S3 or S4, no murmur, click or rub, no peripheral edemaand peripheral pulses strong ABDOMEN: soft, nontender, no hepatosplenomegaly, no masses and bowel sounds normal SKIN: warm and dry PSYCH: mentation appears normal, affect normal/bright Diagnostic Test Results: Labs reviewed in [facility] Results for orders placed or performed in visit on 03/20/19 Hemoglobin A1c Status: None Result Value Ref Range Hemoglobin A1C 4.8 0 - 5.6 % Assessment & Plan 1. Hypoglycemia Per her report and findings when checking BG at home. Normal A1c here today. Will have her f/u with endocrinology. - Hemoglobin A1c - Comprehensive metabolic panel - ENDOCRINOLOGY ADULT REFERRAL 2. Screening for endocrine disorder Has noticed increase in dry skin, always cold. Checking thyroid today. - TSH with free T4 reflex Return in about 3 months (around 06/20/2019) for Physical Exam. Kyung Thornton APRN CNP [facility] ER SETTER RESISTANCE MACHINE documented in this encounter Nursing Notes Malathi Martinez CMA - 03/20/2019 2:00 PM CST Chief Complaint Patient presents with ??? Hypoglycemia at least the past 9 months patient has been experiencing low BS around 47-70 starting around 5pm when patient gets home from work. Has been happening daily. Syptoms: shakey and cold sweats. Very anxious feeling. Feels nauseated. Initial BP 126/72 (BP Location: Right arm, Patient Position: Sitting, Cuff Size: Adult Regular) Pulse 76 Temp 98.2 ??F (36.8 ??C) (Oral) Resp 16 Ht 1.778 m (5' 10) Wt 99.4 kg (219 lb 3.2 oz) LMP 03/02/2019 BMI 31.45 kg/m?? Estimated body mass index is 31.45 kg/m?? as calculated from thefollowing: Height as of this encounter: 1.778 m (5' 10). Weight as of this encounter: 99.4 kg (219 lb 3.2 oz). BP completed using cuff size regular right arm Malathi Martinez CMA ER SETTER RESISTANCE MACHINE documented in this encounter Plan of Treatment Scheduled Referrals Name Type Priority Associated Diagnoses Order S chedule ENDOCRINOLOGY ADULT Referral Routine Hypoglycemia Ordered: 03/20/2019 REFERRAL documented as of this encounter Procedures Procedure Name Priority Date/Time Associated Diagnosis Comme nts TSH WITH FREE T4 Routine 03/20/2019 2:51 Screening for Results for this REFLEX PM WELDER SETTER RESISTANCE MACHINE endocrine disorder procedure are in the results section. HEMOGLOBIN A1C Routine 03/20/2019 2:51 Hypoglycemia Results fo r this PM WELDER SETTER RESISTANCE MACHINE procedure are i n the results section. COMPREHENSIVE Routine 03/20/2019 2:51 Hypoglycemia Results for this METABOLIC PANEL PM WELDER SETTER RESISTANCE MACHINE procedure ar e in the results section. documented in this encounter Results TSH with free T4 reflex (03/20/2019 2:51 PM WELDER SETTER RESISTANCE MACHINE) athologist Signature TSH 1.45 0.40 - 4.00 03/20/2019 [facility] mU/L 7:16 PM WELDER SETTER RESISTANCE MACHINE [facility] Specimen Anatomical Collection Method Collection Time Receive d Time (Source) Location / / Volume Laterality Blood specimen 03/20/2019 2:51 PM 019 2:56 (specimen) WELDER SETTER RESISTANCE MACHINE PM WELDER SETTER RESISTANCE MACHINE Kyung Thornton APRN SUPERVISOR PLATE PASTING LAB - BLOOD ORDERABLES Performing Organization Address City/State/ZIP Code Phon e Number [facility] [address] [place] [address] Comprehensive metabolic panel (03/20/2019 2:51 PM WELDER SETTER RESISTANCE MACHINE) athologist Signature Sodium 136 133 - 144 03/20/2019 [facility] mmol/L 6:48 PM [facility] Potassium 3.9 3.4 - 5.3 03/20/2019 [place] mmol/L 6:48 PM [facility] Chloride 106 94 - 109 03/20/2019 [facility] mmol/L 6:48 PM [facility] Carbon Dioxide 23 20 - 32 03/20/2019 [place] mmol/L 7:15 PM [facility] Anion Gap 7 3 - 14 03/20/2019 [facility] mmol/L 7:15 PM [facility] Glucose 79 70 - 99 03/20/2019 [facility] mg/dL 7:15 PM [facility] Urea Nitrogen 12 7 - 30 03/20/2019 [facility] mg/dL 7:15 PM [facility] Creatinine 0.89 0.52 - 03/20/2019 [facility] 1.04 mg/dL 7:15 PM [facility] GFR Estimate 82 >60 03/20/2019 [place] mL/min/{1. 7:15 PM [facility] 73_m2} [facility] Comment: Non GFR Calc Starting 04/29/2018, serum creatinine ba sed estimated GFR (eGFR) will be calculated using the Chronic Kidney Dise quail run behavioral health Epidemiology Collaboration (CKD-EPI) equation. GFR Estimate If >90 >60 mL/min/{1.73_m2} 03/20/2019 7: 15 PM [facility] Black [facility] Comment: GFR Calc Starting 04/29/2018, serum creatinine ba sed estimated GFR (eGFR) will be calculated using the Chronic Kidney Dise quail run behavioral health Epidemiology Collaboration (CKD-EPI) equation. Calcium 8.8 8.5 - 10.1 03/20/2019 7:15 PM [facility] mg/dL [facility] Bilirubin Total 0.6 0.2 - 1.3 mg/dL 03/20/2019 7:[address] [facility] Albumin 4.0 3.4 - 5.0 g/dL 03/20/2019 7:16 PM [facility] Protein Total 7.1 6.8 - 8.8 g/dL 03/20/2019 7:16 PM [facility] Alkaline Phosphatase 55 40 - 150 U/L 03/20/2019 7:[address] [facility] ALT 30 0 - 50 U/L 03/20/2019 7:16 PM [facility] AST 22 0 - 45 U/L 03/20/2019 7:16 PM [facility] Specimen Anatomical Collection Method Collection Time Receive d Time (Source) Location / / Volume Laterality Blood specimen 03/20/2019 2:51 PM 019 2:56 (specimen) WELDER SETTER RESISTANCE MACHINE PM [facility] Kyung Thornton APRN SUPERVISOR PLATE PASTING LAB - BLOOD ORDERABLES Performing Organization Address City/State/ZIP Code Phon e Number [facility] [address] [place] [address] Hemoglobin A1c (03/20/2019 2:51 PM WELDER SETTER RESISTANCE MACHINE) P athologist Signature Hemoglobin A1C 4.8 0 - 5.6 % 03/20/2019 [facility] 2:57 PM WELDER SETTER RESISTANCE MACHINE [facility] Comment: Normal <5.7% Prediabetes 5.7-6.4% ??Diab etes 6.5% or higher - adopted from ADA consensus guidelines. Specimen Anatomical Collection Method Collection Time Receive d Time (Source) Location / / Volume Laterality Blood specimen 03/20/2019 2:51 PM 019 2:56 (specimen) WELDER SETTER RESISTANCE MACHINE PM WELDER SETTER RESISTANCE MACHINE Kyung Thornton APRN SUPERVISOR PLATE PASTING LAB - BLOOD ORDERABLES Performing Organization Address City/State/ZIP Code Phon e Number [facility] [address] documented in this encounter Visit Diagnoses Diagnosis Hypoglycemia - Primary Hypoglycemia, unspecified Screening for endocrine disorder documented in this encounter Care Teams First Aid Attendant Relationship Specialty Start Date End Date No Ref-Primary, Physician PCP - General 03/13/19 Kyung Thornton APRN SUPERVISOR [employer] Assigned PCP 02/19/19 06/06/19 [id number] [place] [place] [id number] documented as of this encounter
--- OUTSIDE RECORDS SUMMARY | 2022-01-22 07:34 | XMS_ITS | Encounter Summary ---
:1980 Author Organization [employer] Address [address] [place] [id number] Care Team Providers Name Role Phone [facility] Primary Care Provider [phone] Reason for Visit Reason Comments Flank Pain Encounter Details Date Type Department Care Team Description [facility] Emergency Dep t Flank pain [address] [facility] [place], [place] [id number] [facility] [phone] [place], [place] [address] (Wo rk) Social History Tobacco Use Types Packs/Day Years Used Date Never Assessed Sex Assigned at Date Recorded Not on file documented as of this encounter Last Filed Vital Signs Vital Sign Reading Time Taken Comments Blood Pressure 111/66 10/30/2012 3:30 PM CDT Pulse 81 10/30/2012 12:20 PM CDT Temperature 36.8 ??C (98.2 ??F) 10/30/2012 2:00 PM CDT Respiratory Rate 18 10/30/2012 12:20 PM CDT Oxygen Saturation 100% 10/30/2012 3:30 PM CDT Inhaled Oxygen Concentration - - Weight 83.9 kg (185 lb) 10/30/2012 12:20 PM CDT Height 177.8 cm (5' 10) 10/30/2012 12:20 PM CDT Body Mass Index 26.54 10/30/2012 12:20 PM CDT documented in this encounter Discharge Instructions Discharge InstructionsTao Riddle MD - 10/30/2012 4:21 PM CDT Discharge Instructions Abdominal Pain Abdominal pain can be caused by many things. Your evaluation today does not show the exact cause foryour pain. Your doctor today has decided that it is unlikely your pain is due to a life threatening problem, or a problem requiring surgery or hospital admission. Sometimes those problems cannot be found right away, so it is very important that you follow up as directed. Sometimes only the changes which occur over time allow the cause of your pain to be found. Return to the Emergency Department for a recheck in 8-12 hours if your pain continues. If your pain gets worse, changes in location, or feels different, return to the Emergency Department right away. ADULTS: Return to the Emergency Department right away if: You get an oral temperature above 102oF or as directed by your doctor. You have blood in your stools (bright red or black, tarry stools). You keep throwing up or can???t drink liquids. You see blood when you throw up. You can???t have a bowel movement or you can???t pass gas. Your stomach gets bloated or bigger. Your skin or the whites of your eyes look yellow. You faint. You have bloody, frequent or painful urination. You have new symptoms or anything that worries you. MORE INFORMATION: Appendicitis: A possible cause of abdominal pain in any person who still has their appendix is acuteappendicitis. Appendicitis is often hard to diagnose. Testing does not always rule out early appendicitis or other causes of abdominal pain. Close follow-up with your doctor and re-evaluations may be needed to figure out the reason for your abdominal pain. Follow-up: It is very important that you make an appointment with your clinic and go to the appointment. If you do not follow-up with your primary doctor, it may result in missing an important development which could result in permanent injury or disability and/or lasting pain. If there is any problemkeeping your appointment, call your doctor or return to the Emergency Department. Medications: Take your medications as directed by your doctor today. Before using [id number] medications, ask your doctor and make sure to take the medications as directed. If you have any questions about medications, ask your doctor. Diet: Resume your normal diet as much as possible, but do not eat fried, fatty or spicy foods while you have pain. Do not drink alcohol or have caffeine. Do not smoke tobacco. Remember that you can always come back to the Emergency Department if you are not able to see your normal doctor in the amount of time listed above, if you get any new symptoms, or if there is anythingthat worries you. documented in this encounter Medications at Time of Discharge Medication Sig Dispensed Refills Start Date End Date NO ACTIVE MEDICATIONS 0 ondansetron (ZOFRAN) 4 MG Take 1 tablet by 6 tablet 0 10/1206/02/2019 tablet mouth every 8 hours as needed for nausea. traMADol (ULTRAM) 50 MG Take 1-2 tablets by 15 tablet 0 06/02/2019 tablet mouth every 6 hours as needed for pain. documented as of this encounter ED Notes Iqra Witt RN - 10/30/2012 3:07 PM CDT Patient has returned from ultrasound, continues to have 5/10 periumbilical pain, and mild right flank pain. Iqra Witt RN - 10/30/2012 2:20 PM CDT Patient resting, awaiting CT results, no distress. VSS. Friend at bedside. Stephany Heart RN - 10/30/2012 12:40 PM CDT Labs drawn with IV insertion and sent Tao Riddle MD - 10/30/2012 12:34 PM CDT History Chief Complaint: Flank Pain HPI Nancy eKmp is a 32 year old female who presents with flank pain. At 8 AM this morning the patient had onset of right flank pain described as a burning sensation that radiates to her right abdomen. She states the pain is somewhat relieved while standing versus sitting. Palpation does not exacerbate her pain. The patient states that she has never had flank pain like this before and has not performed any unusual activities lately. She denies recent trauma or injury. The patient also complainsof mild nausea and frequent urination. The patient denies dysurua, hematuria, vomiting, bloody stool, cough, chest pain, shortness of breath or any other complaints. The patient denies any history of abdominal surgery. Allergies: NKDA Medications: The patient is currently on no regular medications. Past Medical History: History reviewed. No significant past medical history. Past Surgical History: History reviewed. No pertinent past surgical history. Family/Social History: Marital status: single Tobacco use: current Alcohol use: negative Patient presents to the ED friend. Review of Systems Respiratory: Negative for cough and shortness of breath. Gastrointestinal: Positive for nausea and abdominal pain. Negative for blood in stool. Genitourinary: Positive for frequency and flank pain. Negative for dysuria, hematuria and difficultyurinating. All other systems reviewed and are negative. Physical Exam First Vitals: BP: 120/81 mmHg Pulse: 81 Temp: 97.8 ??F (36.6 ??C) Resp: 18 Height: 177.8 cm (5' 10) Weight: 83.915 kg (185 lb) SpO2: 100 % Physical Exam Nursing note and vitals reviewed. Constitutional: No distress. HENT: Mouth/Throat: Oropharynx is clear and moist. Neck: Normal range of motion. Cardiovascular: Normal rate, regular rhythm, normal heart sounds and intact distal pulses. Pulmonary/Chest: Effort normal and breath sounds normal. No respiratory distress. She has no wheezes. She has no rales. Abdominal: Soft. She exhibits no distension. There is no tenderness. Musculoskeletal: Normal range of motion. She exhibits no edema and no tenderness. Lymphadenopathy: She has no cervical adenopathy. Neurological: She is alert. She has normal strength. Skin: Skin is warm and dry. No rash noted. Psychiatric: Her behavior is normal. Emergency Department Course Imaging: Abdomen US, limited: Normal right upper quadrant. No gallstone or biliary dilatation. LUIS WEST MD Abd/pelvis CT no contrast stone protocol: IMPRESSION: 1. There is a solitary small right intrarenal stone. No ureteral stone or hydronephrosis. 2. No acute abdominal or pelvic abnormality. The appendix is normal. No bowel obstruction or inflammation. LUIS WEST MD Radiographic findings were communicated with the patient who voiced understanding of the findings. Laboratory: CMP: Cr 0.70 (WNL) Glucose 106 (high) Protein 6.7 (low) Rest WNL CBC: WBC 9.5 (WNL) HGB 12.3 (WNL) PLT 274 (WNL) Rest WNL UA: yellow, slightly cloudy urine, pH 8.5 (high) Protein 100 (A) Urobilinogen 4.0 (high) RBC/HPF 11 (high) Bacteria many (A) Squamous Epithelial/ HPF 10 (high) Mucous present (A) Amorphous crystals few(A) HCG: negative Interventions: NS, 1 L, IV x2 Toradol, 30 mg, IV Zofran, 4 mg, IV ED Course: The patient was roomed. The patient's medical charts were reviewed and I examined the patient. I discussed the plan of care with the patient. Recheck. I discussed with the patient the results of the above procedures and the patient will be discharged to home. All questions were answered prior to discharge, and the patient was told to follow up per discharge instructions. Reasons for return as well as follow up were reviewed with the patient. The patient understands and agrees to this plan. Discharge prescriptions: Ultram and Zofran. Impression & Plan Medical Decision Making: The patient had a nonsurgical abdominal exam. Her pain seemed to be mostly in the RUQ and right flank. She had no evidence of gallbladder dysfunction. Her CT was negative for any ureteral stones. Thereis no evidence of pyelonephritis. She improved in the ED with IV medications. This may represent a dysesthesia prior to the rash of zoster. I discharged her home with instructions to take Ultram and Zofran as needed. She is to return for fever, worsening pain, vomiting, bloody stool or worsening symptoms. She is to follow up with her doctor next week. Diagnosis: 1. Abdominal pain 2. Right flank pain Becca Chahal am serving as a scribe on 10/30/2012 at 12:39 PM to personally document servicesperformed by Dr. Riddle based on my observations and the provider's statements to me. Tao Riddle MD 10/31/12 1017 Fatou Barker, RN - 10/30/2012 12:20 PM CDT Right flank pain that wraps around to front. + nausea, urgency. ABCDs intact. documented in this encounter Plan of Treatment Not on filedocumented as of this encounter Procedures Procedure Name Priority Date/Time Associated Comments Diagnosis US ABDOMEN LIMITED STAT 10/30/2012 2:50 PM Res ults for this CDT procedure are i n the results section. CT ABDOMEN PELVIS W/O STAT 10/30/2012 2:01 PM Results for this CONTRAST CDT procedure are i n the results section. CBC WITH PLATELETS & STAT 10/30/2012 12:40 Res ults for this DIFFERENTIAL PM CDT procedure are i n the results section. COMPREHENSIVE STAT 10/30/2012 12:40 Results fo r this METABOLIC PANEL PM CDT procedure ar e in the results section. HCG QUALITATIVE URINE STAT 10/30/2012 12:30 Re sults for this PM CDT procedure are i n the results section. ROUTINE UA WITH STAT 10/30/2012 12:30 Results for this MICROSCOPIC PM CDT procedure are i n the results section. documented in this encounter Results Abdomen US, limited (RUQ only) (10/30/2012 2:50 PM CDT) Anatomical Region Laterality Modality Abdomen/Pelvis Other Specimen (Source) Anatomical Collection Method Collection Time Re ceived Time Location / / Volume Laterality 10/30/2012 2:50 PM CDT Impressions 10/30/2012 3:10 PM CDT IMPRESSION: Normal right upper quadrant. No gallston e or biliary dilatation. LUIS WEST MD Narrative 10/30/2012 3:10 PM CDT US ABD LIMITED ??10/30/2012 3:06 PM HISTORY: Right upper quadrant pain. COMPARISON: None. FINDINGS: The liver is normal size and t exture without focal mass. There is no intra or extrahepatic biliar y dilatation. The common hepatic duct measures 0.4 cm. ??The gall bladder is normal in appearance without gallstones. ??The flowers creas body appears normal. The head and tail are obscured by bowel gas. ??The right kidney measures 11.9 cm. The stone seen on CT is not kaylee ntified by ultrasound. The kidney is normal in appearance. The prox imal abdominal aorta and IVC appear normal. Procedure Note Luis West MD - 10/30/2012Form atting of this note might be different from the original. US ABD LIMITED 10/30/2012 3:06 PM HISTORY: Right upper quadrant pain. COMPARISON: None. FINDINGS: The liver is normal size and t exture without focal mass. There is no intra or extrahepatic biliar y dilatation. The common hepatic duct measures 0.4 cm. The gallbl adder is normal in appearance without gallstones. The pancr eas body appears normal. The head and tail are obscured by bowel gas. The right kidney measures 11.9 cm. The stone seen on CT is not kaylee ntified by ultrasound. The kidney is normal in appearance. The prox imal abdominal aorta and IVC appear normal. IMPRESSION IMPRESSION: Normal right upper quadrant. No gallston e or biliary dilatation. LUIS WEST MD Tao Riddle MD IMG US ORDERABLES Abd/pelvis CT no contrast - Stone Protocol (10/30/2012 2:01 PM CDT) Anatomical Region Laterality Modality Abdomen/Pelvis, SUBRAD CT BODY, UMP CT ABDOMEN PELVIS Computed Tomography Specimen (Source) Anatomical Collection Method Collection Time Re ceived Time Location / / Volume Laterality 10/30/2012 2:01 PM CDT Impressions 10/30/2012 2:21 PM CDT IMPRESSION: 1. There is a solitary small right intra renal stone. No ureteral stone or hydronephrosis. 2. No acute abdominal or pelvic abnormal ity. The appendix is normal. No bowel obstruction or inflammation. LUIS WEST MD Narrative 10/30/2012 2:[address] ABDOMEN/PELVIS WITHOUT CONTRAST ?? 2:01 PM HISTORY: ??Right flank pain. TECHNIQUE: ??Imaging performed from the diaphragm to the base of the bladder using the renal stone protocol. ??No oral or intravenous contrast. COMPARISON: ??None. FINDINGS: Abdomen: ??There is a faintly calcified 0.5 cm stone in the upper pole of the right kidney. No other renal or u reteral stones on either side. No hydronephrosis. The kidneys oth erwise appear normal on this noncontrast exam. The lung bases are unremarkable. Evaluat ion of the solid abdominal organs is limited by lack of intravenous contrast. The liver, spleen, gallbladder, pancreas and adrenal glands are normal in appearance. There is no abdominal or pelvic lymph no de enlargement. Pelvis: The uterus and adnexa appear сергей ssly normal. Bowel appears normal without obstruction or inflammati on. The appendix is normal. There is no free intraperitoneal gas or fluid. Right pelvic phlebolith. Procedure Note Luis West MD - 10/30/2012Form atting of this note might be different from the original. CT ABDOMEN/PELVIS WITHOUT CONTRAST 2012 2:01 PM HISTORY: Right flank pain. TECHNIQUE: Imaging performed from the di aphragm to the base of the bladder using the renal stone protocol. No oral or intravenous contrast. COMPARISON: None. FINDINGS: Abdomen: There is a faintly calcified 0. 5 cm stone in the upper pole of the right kidney. No other renal or u reteral stones on either side. No hydronephrosis. The kidneys oth erwise appear normal on this noncontrast exam. The lung bases are unremarkable. Evaluat ion of the solid abdominal organs is limited by lack of intravenous contrast. The liver, spleen, gallbladder, pancreas and adrenal glands are normal in appearance. There is no abdominal or pelvic lymph no de enlargement. Pelvis: The uterus and adnexa appear сергей ssly normal. Bowel appears normal without obstruction or inflammati on. The appendix is normal. There is no free intraperitoneal gas or fluid. Right pelvic phlebolith. IMPRESSION IMPRESSION: 1. There is a solitary small right intra renal stone. No ureteral stone or hydronephrosis. 2. No acute abdominal or pelvic abnormal ity. The appendix is normal. No bowel obstruction or inflammation. LUIS WEST MD Tao Riddle MD IMG CT ORDERABLES (ABNORMAL) Comprehensive metabolic panel (10/30/2012 12:40 PM CDT) Analysis Performed At Patho logist Time Signature Sodium 139 133 - 144 [place] mmol/L [facility] Potassium 3.9 3.4 - 5.3 [place] mmol/L [facility] Chloride 104 94 - 109 [place] mmol/L [facility] Carbon Dioxide 23 20 - 32 [place] mmol/L [facility] Anion Gap 12 6 - 17 [place] mmol/L [facility] Glucose 106 (H) 60 - 99 BR[place] mg/dL [facility] Urea Nitrogen 10 5 - 24 [place] mg/dL [facility] Creatinine 0.70 0.52 - [place] 1.04 mg/dL [facility] GFR Estimate >90 >60 [place] mL/min/1.[address] [facility] GFR Estimate If >90 >60 [place] Black mL/min/1.[address] [facility] Calcium 8.5 8.5 - 10.4 [place] mg/dL [facility] Bilirubin Total 0.7 0.2 - 1.3 [place] mg/dL [facility] Albumin 4.1 3.9 - 5.1 [place] g/dL [facility] Protein Total 6.7 (L) 6.8 - 8.8 BR[place] g/dL [facility] Alkaline 46 40 - 150 [place] Phosphatase U/L [facility] ALT 35 0 - 50 U/L [facility] AST 29 0 - 45 U/L [facility] Specimen Anatomical Collection Method Collection Time Receive d Time (Source) Location / / Volume Laterality Blood specimen 10/30/2012 12:40 3 (specimen) PM CDT 12:55 PM CDT Tao Riddle MD LAB - BLOOD ORDERABLES Performing Organization Address City/State/ZIP Code Phon e Number [place] [address], [place] [address] [facility] CBC with platelets differential (10/30/2012 12:40 PM CDT) [facility] gist Method Time Signature WBC 9.5 4.0 - [place] 11.0 [facility] 10e9/L [facility] RBC Count 4.11 3.8 - 5.2 [place] 10e12/L [facility] Hemoglobin 12.3 11.7 - [place] 15.7 g/dL [facility] Hematocrit 35.7 35.0 - [facility] 47[facility] % [facility] MCV 87 78 - 100 [place] fl [facility] MCH 29.9 26.5 - [place] 33.0 pg [facility] MCHC 34.5 31.5 - [place] 36.5 g/dL [facility] RDW 12.9 10.0 - [facility] 15.0 % [facility] Platelet Count 274 150 - 450 [place] 10e9/L [facility] Diff Method Automated [place] Method [facility] % Neutrophils 70.4 % [facility] % Lymphocytes 23.2 % [facility] % Monocytes 4.0 % [facility] % Eosinophils 1.9 % [facility] % Basophils 0.4 % [facility] % Immature 0.1 % [place] Granulocytes [facility] Absolute 6.7 1.6 - 8.3 [place] Neutrophil 10e9/L [facility] Absolute 2.2 0.8 - 5.3 [place] Lymphocytes 10e9/L [facility] Absolute 0.4 0.0 - 1.3 [place] Monocytes 10e9L [facility] Absolute 0.2 0.0 - 0.7 [place] Eosinophils 10e9/L [facility] Absolute 0.0 0.0 - 0.2 [place] Basophils 10e9/L [facility] Abs Immature 0.0 0 - 0.4 [place] Granulocytes 10e9/L [facility] Specimen Anatomical Collection Method Collection Time Receive d Time (Source) Location / / Volume Laterality Blood specimen 10/30/2012 12:40 3 (specimen) PM CDT 12:55 PM CDT Tao Riddle MD LAB - BLOOD ORDERABLES Performing Organization Address City/[facility]/ZIP [facility] Phon e Number M [facility] [address] [place], [place] [address] [facility] HCG qualitative urine (10/30/2012 12:30 PM CDT) P athologist Signature HCG Qual Urine Negative NEG [facility] Specimen Anatomical Collection Method Collection Time Receive d Time (Source) Location / / Volume Laterality Urine specimen URINE SPECIMEN 10/30/2012 12:30 013 (specimen) OBTAINED BY CLEAN PM CDT 12:35 PM C DT CATCH PROCEDURE / Unknown Tao Riddle MD LAB - URINE ORDERABLES Performing Organization Address City/[facility]/ZIP [facility] Phon e Number M [facility] [address] [place], [place] [address] [facility] (ABNORMAL) Routine UA with microscopic (10/30/2012 12:30 PM CDT) [facility] Method Time Signature Color Urine Yellow [facility] Appearance Urine Slightly [place] Cloudy [facility] Glucose Urine Negative NEG mg/dL [facility] Bilirubin Urine Negative NEG [facility] Ketones Urine Negative NEG mg/dL [facility] Specific [place] 1.022 1.003 - [place] Urine 1.035 [facility] Blood Urine Negative NEG [facility] pH Urine 8.5 (H) 5.0 - 7.0 [place] pH [facility] Protein Albumin 100 (A) NEG mg/dL [facility] Urobilinogen 4.0 (H) 0.0 - 2.0 [place] mg/dL mg/dL [facility] Nitrite Urine Negative NEG [facility] Leukocyte Negative NEG [place] Esterase Urine [facility] Source Midstream [facility] WBC Urine 2 0 - 2 [place] /[facility] RBC Urine 11 (H) 0 - 2 [place] /[facility] Bacteria Urine Many (A) NEG /HPF [facility] Squamous 10 (H) 0 - 1 [place] Epithelial /HPF /HPF [facility] Mucous Urine Present (A) NEG /LPF [facility] Amorphous Few (A) NEG /HPF [place] Crystals [facility] Specimen Anatomical Collection Method Collection Time Receive d Time (Source) Location / / Volume Laterality Urine specimen URINE SPECIMEN 10/30/2012 12:30 013 (specimen) OBTAINED BY CLEAN PM CDT 12:35 PM C DT CATCH PROCEDURE / Unknown Tao Riddle MD LAB - URINE ORDERABLES Performing Organization Address City/State/ZIP Code Phon e Number M [facility] [address], [place] [address] [facility] documented in this encounter Visit Diagnoses Diagnosis Abdominal pain - Primary Abdominal pain, unspecified site Flank pain Abdominal pain, unspecified site documented in this encounter Administered Medications Inactive Administered Medications - up to 3 most recent administrations Medication Order MAR Action Action Date Dose Rate Site 0.9 % sodium chloride IV New Bag 10/30/2012 2:19 PM CDT 1,000 mLs 125 mL/hr solution at 125 mL/hr, Intravenous, CONTINUOUS, Administer after the bolus., Starting on Yesenia 10/30/12 at 1300, Until Yesenia 10/30/12 at 1848 ketorolac (TORADOL) injection 30 mg Given 10/30/2012 12:51 PM CDT 30 mg 30 mg, Intravenous, ONCE, On Yesenia 10/30/12 at 1300, For 1 dose, Do not give within 6 hours of Ibuprofen. ondansetron (ZOFRAN) injection 4 mg Given 10/30/2012 12:50 PM CDT 4 mg 4 mg, Intravenous, ONCE PRN, nausea, vomiting, Administer over 2-5 Minutes, Starting on Yesenia 10/30/12 at 1246, For 1 dose sodium chloride 0.9 % BOLUS New Bag 10/30/2012 12:40 PM CDT 1, 000 mLs 1000 mL/hr 1,000 mL Intravenous, 1,000 mL, ONCE, at 1,000 mL/hr, Administer over 1 Hours, On Yesenia 10/30/12 at 1300, For 1 dose documented in this encounter Active and Recently Administered Medications Times are shown in CDT. Scheduled Medication Order 10/28/2012 10/29/2012 10/30/2012 ketorolac (TORADOL) injection 30 mg (COMPLETED) 1251 (Given - Provider: Stephany Heart RN) 30 mg, Intravenous, ONCE, Yesenia 10/30/12 at 1300, For 1 dose, Do not give within 6 hours of Ibuprofen. sodium chloride 0.9 % BOLUS 1,000 mL (COMPLETED) 1240 (New Bag - Provider: Stephany Heart RN)1418 (Stopped - Provider: Iqra Witt, ALVINO) Intravenous, 1,000 mL, ONCE, at 1,000 mL /hr, for 1 Hours, Yesenia 10/30/12 at 1300, For 1 dose Continuous Medication Order 10/28/2012 10/29/2012 10/30/2012 0.9 % sodium chloride IV solution (CANCELED) 1419 (New Bag - Provider: Iqra Witt, ALVINO)1645 (Stopped - Provider: Iqra L Pavwoski, RN) at 125 mL/hr, Intravenous, CONTINUOUS, Administer after the bolu s. PRN Medication Order 10/28/2012 10/29/2012 10/30/2012 ondansetron (ZOFRAN) injection 4 mg (COMPLETED) 1250 (Given - Provider: Stephany Heart, ALVINO) 4 mg, Intravenous, ONCE PRN, nausea, vom iting, for 2 Minutes, Starting Yesenia 10/30/12 at 1246, For 1 dose documented in this encounter Care Teams Hardware Sales Assistant Relationship Specialty Start Date End Date [facility] Medical PCP - General 10/30/12 03/12/19 [id number] [address] [place], [place] [id number] documented as of this encounter
--- OUTSIDE RECORDS SUMMARY | 2022-01-22 07:34 | XMS_ITS | Encounter Summary ---
:1980 Author Organization [place] Address [address] [place] [address]. [place] [address] Care Team Providers Name Role Phone No Ref-Primary, Physician Primary Care Provider [phone] Misha Hill PA-C Unavailable [phone] Reason for Visit Reason Comments Consult Hypoglycemia Consultation (Routine) - Closed Specialty Diagnoses / Procedures Referred By Contact Refer red To Contact Diagnoses Hypoglycemia Kyung Thornton M [facility] PULMONARY SPECIALIST PROCESS SAFETY MANAGEMENT ENGINEER [facility] [place] [address] [place] [address] [place] [address] Phone: Fax: Referral ID Status Reason Start Date Expiration Date Visits Requ ested Visits Authorized [id number] Closed 03/20/2019 03/19/2020 1 1 Encounter Details Date Type Department Care Team Description 06/18/2019 Office Visit [facility] Mallika Harley Hypoglycem ia (Primary Dx); Clinic [employer] SHARI Lao PROCESS SAFETY MANAGEMENT ENGINEER Shakiness; [address] [place] [address] [id number] Social History Tobacco Use Types Packs/Day Years Used Date Current Every Day Smoker 0 Smokeless Tobacco: Never Used Tobacco Cessation: Ready to Quit: Yes; C ounseling Given: Yes Comments: 1/2 ppd. Patient is actively t [...] Comments Blood Pressure 117/68 06/18/2019 8:03 AM INSTRUMENT MAKER Pulse 83 06/18/2019 8:03 AM INSTRUMENT MAKER Temperature 36.6 ??C (97.9 ??F) 06/18/2019 8:03 AM INSTRUMENT MAKER Respiratory Rate 14 06/18/2019 8:03 AM INSTRUMENT MAKER Oxygen Saturation - - Inhaled Oxygen Concentration - - Weight 98.7 kg (217 lb 8 oz) 06/18/2019 8:03 AM INSTRUMENT MAKER Height - - Body Mass Index 31.21 06/02/2019 7:43 AM INSTRUMENT MAKER documented in this encounter Patient Instructions Patient InstructionsSmMallika abernathy APRN CNP - 06/18/2019 8:00 AM INSTRUMENT MAKER Schedule a fasting lab appointment. I'll let you know results and what the plan will be moving forward. Try to do some targeted testing - 2-3 days in a row fasting (before breakfast), 2-3 days in a row before and 1-1 1/2 hour after eating lunch, then before and after dinner. Also test when you are symptomatic. Bring the meter in to be downloaded for my review. Mallika Harley NP Endocrinology RUMENT MAKER documented in this encounter Progress Notes Mallika Harley APRN CNP - 06/18/2019 8:00 AM CST Name: Nancy Kemp Seen at the request of Kyung Thornton For Chief Complaint Patient presents with ??? Consult Hypoglycemia HPI: Nancy Kemp is a 38 year old female who presents for the evaluation of hypoglycemia. Has not been feeling well for the past 12-18 months but wasn't paying close attention to her symptoms until the past 6-8 months. States she has episodes, nearly everyday, between 2 pm and 5 pm where she feels shaky, sweaty, anxious, foggy-brained. These symptoms are relieved by eating something. This is followed by extreme exhaustion. She has been using a glucose meter and states she has had fingerstick glucose levels as low as 46. She has not noted any BG readings higher than 90. + strong FH of type 2 diabetes on her mother's side of the family. She passed the 3 hour GTT in in 2014 however, 1 HR glucose was 185, 2 HR glucose was 152, 3H glucose 70. PMH/PSH: History reviewed. No pertinent past medical history. Past Surgical History: Procedure Laterality Date ??? LEEP TX, CERVICAL See problem list Family Hx: Family History Problem Relation Age of Onset ??? Diabetes Mother ??? Lung Cancer Maternal Grandmother ??? Lung Cancer Maternal Grandfather ??? Diabetes Maternal Uncle ??? Diabetes Maternal Aunt Thyroid disease: No DM2: Yes: Mother, maternal aunt, maternal uncle, + remote family history in maternal cousin, and second cousin Autoimmune: DM1, SLE, RA, Vitiligo Yes: MGF with psoriasis Social Hx: Social History Socioeconomic History ??? Marital status: Single Spouse name: Not on file ??? Number of children: Not on file ??? Years of education: Not on file ??? Highest education level: Not on file Occupational History ??? Not on file Social Needs ??? Financial resource strain: Not on file ??? Food insecurity: Worry: Not on file Inability: Not on file ??? Transportation needs: Medical: Not on file Non-medical: Not on file Tobacco Use ??? Smoking status: Current Every Day Smoker Packs/day: 0.00 ??? Smokeless tobacco: Never Used ??? Tobacco comment: 1/2 ppd. Patient is actively trying to quit Substance and Sexual Activity ??? Alcohol use: Yes Comment: occasionally ??? Drug use: Never ??? Sexual activity: Yes Partners: Male control/protection: Female Surgical Lifestyle ??? Physical activity: Days per week: Not on file Minutes per session: Not on file ??? Stress: Not on file Relationships ??? Social connections: Talks on phone: Not on file Gets together: Not on file Attends taoist service: Not on file Active member of club or organization: Not on file Attends meetings of clubs or organizations: Not on file Relationship status: Not on file ??? Intimate partner violence: Fear of current or ex partner: Not on file Emotionally abused: Not on file Physically abused: Not on file Forced sexual activity: Not on file Other Topics Concern ??? Not on file Social History Narrative ??? Not on file MEDICATIONS: has a current medication list which includes the following prescription(s): bupropion and NO ACTIVE MEDICATIONS. ROS ROS: 10 point ROS neg other than the symptoms noted above in the HPI. GENERAL: no weight loss, + night sweats and hot flashes HEENT: no dysphagia, neck pain, or tenderness CV: no chest pain, pressure, + palpitations and racing heart - has felt attributed to anxiety LUNGS: no cough, sputum production, wheezing - + SOB - attributes to smoking ABDOMEN: no constipation, abdominal pain - + intermittent diarrhea. EXTREMITIES: + ankle edema NEUROLOGY: + changes in vision, - blurry vision, light sensitivity; no tingling in hands or feet. + intermittent numbness in hands and feet. MSK: no muscle aches or pains, weakness SKIN: no rashes or lesions ENDOCRINE: no heat or cold intolerance Physical Exam VS: BP 117/68 (BP Location: Right arm, Patient Position: Chair, Cuff Size: Adult Large) Pulse 83 Temp 97.9 ??F (36.6 ??C) (Oral) Resp 14 Wt 98.7 kg (217 lb 8 oz) LMP 05/25/2019 (Exact Date) BMI 31.21 kg/m?? GENERAL: AXOX3, NAD, well dressed, answering questions appropriately, appears stated age. HEENT: no exopthalmous, no proptosis, no lig lag, no retraction NECK: Thyroid gland palpably normal. CV: RRR, no rubs, gallops, no murmurs LUNGS: CTAB, no wheezes, rales, or ronchi EXTREMITIES: no edema, +pulses, no rashes, no lesions NEUROLOGY: CN grossly intact, no tremors MSK: grossly intact LABS: ENDO THYROID LABS-[facility] Latest Ref Rng & Units 03/20/2019 TSH 0.40 - 4.00 mU/L 1.45 !COMPREHENSIVE Latest Ref Rng & Units 10/30/2012 03/20/2019 SODIUM 133 - 144 mmol/L 139 136 POTASSIUM 3.4 - 5.3 mmol/L 3.9 3.9 CHLORIDE 94 - 109 mmol/L 104 106 BUN 7 - 30 mg/dL 10 12 Creatinine 0.52 - 1.04 mg/dL 0.70 0.89 Glucose 70 - 99 mg/dL 106 (H) 79 ANION GAP 3 - 14 mmol/L 12 7 CALCIUM 8.5 - 10.1 mg/dL 8.5 8.8 Component Latest Ref Rng & Units 03/20/2019 Hemoglobin A1C 0 - 5.6 % 4.8 !LIPID/HEPATIC Latest Ref Rng & Units 03/20/2019 AST 0 - 45 U/L 22 ALT 0 - 50 U/L 30 All pertinent notes, labs, and images personally reviewed by me. A/P Ms.Kristina Bhavik Kemp is a 38 year old here for the evaluation of: 1. Hypoglycemia 2. Shakiness 3. Diaphoresis I recommend she test her blood sugar before and 1-2 hours after eating and whenever symptomatic. Consider keeping a detailed food, glucose, and symptom diary. Will obtain the following labs for further evaluation: Labs ordered today: Orders Placed This Encounter Procedures ??? Cortisol ??? C-peptide ??? Glucose ??? Insulin antibody ??? Insulin Growth Factor 1 by Immunoassay ??? Insulin level ??? Proinsulin ??? Beta hydroxybutyrate level ??? Lipid panel reflex to direct LDL Fasting Radiology/Consults ordered today: None More than 50% of the time spent with?Viridiana??on counseling / coordinating her care??discussing the above plan of care.The patient indicates understanding of the above issues and agrees with the plan set forth. ??Total face to face??time was 35??minutes Follow-up: TBD based on lab results Mallika Harley NP Endocrinology [facility] CC: Kyung Thornton RUMENT MAKER documented in this encounter Plan of Treatment Not on filedocumented as of this encounter Results (ABNORMAL) Lipid panel reflex to direct LDL Fasting (06/24/2019 8:00 AM INSTRUMENT MAKER) Analysis Performed At [facility] Time Signature Cholesterol 176 <200 mg/dL 06/24/2019 [facility] 1:19 PM [facility] Triglycerides 177 (H) <150 mg/dL 06/24/2019 [facility] 1:25 PM [facility] Comment: Borderline high: ??150-199 mg/dl High: ? 200-499 mg/dl Very high: ? >499 mg/dl Fasting specimen HDL Cholesterol 41 (L) >49 mg/dL 06/24/2019 1:28 PM [facility] LDL Cholesterol 100 (H) <100 mg/dL 06/24/2019 1:[address] [facility] Comment: Desirable: <100 mg/dl Non HDL Cholesterol 135 (H) <130 mg/dL 06/24/2019 1:28 PM [facility] Comment: Above Desirable: ??130-159 mg/dl Borderline high: ??160-189 mg/dl High: ? 190-219 mg/dl Very high: ? >219 mg/dl Specimen Anatomical Collection Method Collection Time Receive d Time (Source) Location / / Volume Laterality Blood specimen 06/24/2019 8:00 AM 020 8:01 (specimen) INSTRUMENT MAKER AM INSTRUMENT MAKER Mallika Harley APRN PROCESS SAFETY MANAGEMENT ENGINEER LAB - BLOOD ORDERABLES Performing Organization Address City/State/ZIP Code Phon e Number [facility] [address] [place] [address] Beta hydroxybutyrate level (06/24/2019 8:00 AM INSTRUMENT MAKER) [facility] gist Method Time Signature Betahydroxybutyrate 0.5 0.0 - 3.0 06/25/2019 [place] mg/dL 12:33 PM [facility] Comment: (Note) Performed by [facility], [address] [place] [id number] [email or web address], Fabian Larsen MD, Lab. Director Specimen Anatomical Collection Method Collection Time Receive d Time (Source) Location / / Volume Laterality Blood specimen 06/24/2019 8:00 AM 020 8:01 (specimen) INSTRUMENT MAKER AM INSTRUMENT MAKER Mallika Harley APRN PROCESS SAFETY MANAGEMENT ENGINEER LAB - BLOOD ORDERABLES Performing Organization Address City/[facility]/ZIP Code Phon e Number [address] [address] Proinsulin (06/24/2019 8:00 AM INSTRUMENT MAKER) athologist Signature Proinsulin 3.2 <=8.0 06/25/2019 [facility] pmol/L 3:06 PM [facility] Comment: (Note) INTERPRETIVE INFORMATION: Proinsulin, In tact Proinsulin, Intact: Fasting intact proin sulin values above the reference interval indicate a possib le insulin secreting pancreatic tumor (insulinoma) in patients with hypoglycemia. Fasting intact proinsulin values range from 3 to 50 pmol/L in patients with untreated type 2 diabetes. Performed by [facility], [address] [place] [id number] [email or web address], Fabian Larsen MD, Lab. Director Specimen Anatomical Collection Method Collection Time Receive d Time (Source) Location / / Volume Laterality Blood specimen 06/24/2019 8:00 AM 020 8:01 (specimen) INSTRUMENT MAKER AM INSTRUMENT MAKER Mallika Harley APRN, CNP LAB - BLOOD ORDERABLES Performing Organization Address City/[facility]/ZIP Code Phon e Number [facility] [id number] [place] [address] Insulin level (06/24/2019 8:00 AM INSTRUMENT MAKER) athologist Signature Insulin 10.0 3 - 25 mU/L 06/24/2019 [facility] 3:58 PM [facility] Specimen Anatomical Collection Method Collection Time Receive d Time (Source) Location / / Volume Laterality Blood specimen 06/24/2019 8:00 AM 020 8:01 (specimen) INSTRUMENT MAKER AM INSTRUMENT MAKER Mallika Harley APRN PROCESS SAFETY MANAGEMENT ENGINEER LAB - BLOOD ORDERABLES Performing Organization Address City/[facility]/ZIP Code Phon e Number [address] [address] [facility] Insulin Growth Factor 1 by Immunoassay (06/24/2019 8:00 AM INSTRUMENT MAKER) athologist Signature Ins Growth 217 78 - 274 06/26/2019 [facility] 1 ng/ml 1:58 PM [facility] Specimen Anatomical Collection Method Collection Time Receive d Time (Source) Location / / Volume Laterality Blood specimen 06/24/2019 8:00 AM 020 8:01 (specimen) INSTRUMENT MAKER AM INSTRUMENT MAKER Mallika Krausever Harley APRN PROCESS SAFETY MANAGEMENT ENGINEER LAB - BLOOD ORDERABLES Performing Organization Address City/State/ZIP Code Phon e Number [facility] [address] [place] [address] [facility] Insulin antibody (06/24/2019 8:00 AM INSTRUMENT MAKER) athologist Signature Insulin <0.4 0.0 - 0.4 06/26/2019 [facility] Antibodies U/mL 5:01 PM INSTRUMENT MAKER [facility] Comment: (Note) INTERPRETIVE INFORMATION: Insulin Antibo dy [...] the context of clinical symptoms. Performed by [facility], [address] [place] [id number] [email or web address], Fabian Larsen MD, Lab. Director Specimen Anatomical Collection Method Collection Time Receive d Time (Source) Location / / Volume Laterality Blood specimen 06/24/2019 8:00 AM 020 8:01 (specimen) INSTRUMENT MAKER AM INSTRUMENT MAKER Mallika Tashia Harley APRN PROCESS SAFETY MANAGEMENT ENGINEER LAB - BLOOD ORDERABLES Performing Organization Address City/State/ZIP Code Phon e Number [facility] [address] [place] [address] Glucose (06/24/2019 8:00 AM INSTRUMENT MAKER) athologist Signature Glucose 96 70 - 99 06/24/2019 [facility] mg/dL 1:15 PM INSTRUMENT MAKER [facility] Comment: Fasting specimen Specimen Anatomical Collection Method Collection Time Receive d Time (Source) Location / / Volume Laterality Blood specimen 06/24/2019 8:00 AM 020 8:01 (specimen) INSTRUMENT MAKER AM INSTRUMENT MAKER Mallika Harley APRN PROCESS SAFETY MANAGEMENT ENGINEER LAB - BLOOD ORDERABLES Performing Organization Address City/State/ZIP Code Phon e Number [facility] [address] [place] [address] C-peptide (06/24/2019 8:00 AM INSTRUMENT MAKER) P athologist Signature C Peptide 2.3 0.9 - 6.9 06/25/2019 [facility] ng/mL 10:19 AM [facility] Specimen Anatomical Collection Method Collection Time Receive d Time (Source) Location / / Volume Laterality Blood specimen 06/24/2019 8:00 AM 020 8:01 (specimen) INSTRUMENT MAKER AM INSTRUMENT MAKER Mallika Harley APRN, CNP LAB - BLOOD ORDERABLES Performing Organization Address City/State/ZIP Code Phon e Number [facility] [address] [place] [address] [facility] documented in this encounter Visit Diagnoses Diagnosis Hypoglycemia - Primary Hypoglycemia, unspecified Shakiness Abnormal involuntary movements Diaphoresis Generalized hyperhidrosis documented in this encounter Additional Health Concerns Assessment Noted Time PHQ-9 Depression Total Score: 6 06/02/2019 8:28 AM INSTRUMENT MAKER documented as of this encounter Care Teams Feeder Catcher Relationship Specialty Start Date End Date No Ref-Primary, Physician PCP - General 03/13/19 Misha Hill PA-C Assigned PCP 06/07/19 10/10/19 [address] [place] [address] documented as of this encounter
--- OUTSIDE RECORDS SUMMARY | 2022-01-22 07:34 | XMS_ITS | Encounter Summary ---
:1980 Author Organization [place] Address [address] [place] [address] Care Team Providers Name Role Phone [place], [facility] Primary Care Provider [phone] No Ref-Primary, Physician Primary Care Provider [phone] Kyung Thornton JOURNEYMAN POWER PLANT OPERATOR COMMUNITY SUPPORT SPECIALIST Unavailable [phone] Misha Hill PA-C Unavailable [phone] Kyung Thornton JOURNEYMAN POWER PLANT OPERATOR COMMUNITY SUPPORT SPECIALIST Unavailable [phone] Encounter Details Date Type Department Care Team Description 07/12/2010 Records - [facility] Malathi Sawyer MD [facility] [address] [place], [place] [address] (Wo rk) Social History Tobacco Use Types Packs/Day Years Used Date Never Assessed Sex Assigned at Date Recorded Not on file documented as of this encounter Plan of Treatment Not on filedocumented as of this encounter Procedures Procedure Name Priority Date/Time Associated Comments Diagnosis GYNECOLOGIC CYTOLOGY Routine 07/12/2010 9:41 AM R esults for this BODY FINISHER procedure are i n the results section. LIPID PROFILE Routine 07/12/2010 9:41 AM Results for this BODY FINISHER procedure are i n the results section. documented in this encounter Results Gynecologic Cytology (PAP Smear) (07/12/2010 9:41 AM BODY FINISHER) Specimen Anatomical Collection Method Collection Time Receive d Time (Source) Location / / Volume Laterality 07/12/2010 9:41 AM 1 9:41 BODY FINISHER AM BODY FINISHER Narrative [facility] Y - 07/12/2010 9:41 AM BODY FINISHER [id number] ?Slide(s) 1 Specimen Type: ??SUREPATH SCREEN SOURCE: ENDOCERV CERVICAL PAP SMEAR INTERPRETATION: NEGATIVE FOR SQUAMOUS INTRAEPITHELIAL L ESION OR MALIGNANCY Based on Pap interpretation, HPV reflex test not performed. Endocervical Component Present Satisfactory for Interpretation PATIENT HISTORY Reflex HPV.................: Yes if ASC US High Risk..................: NO LMP/Menopause Date.........: 06/28/2010 Abnormal Bleeding:.........: NO Pt Status..................: NOT APPLIC ABLE Control/Hormones.....: NONE Previous Normal/Date.......: 05/2009 Prev. Abn Date/Dx..........: 2005 Cervical Appearance........: normal S. [place] CT(ASCP) ? (elec tronically signed) Performed at: ??[facility] [address] [place] [address] Date Received: 07/12/10 ?Date Compl eted: 07/17/10 ??ABN Complete: Malathi JUAN - ALEJANDRA BENÍTEZ Performing Organization Address City/State/ZIP Code Phon e [place] [address] [address] [facility] Lipid Profile (07/12/2010 9:41 AM BODY FINISHER) [facility] Method Time Signature Triglycerides 132 <150 mg/dL 07/12/2010 [facility] 9:41 AM BODY FINISHER [facility] LDL Cholesterol 105 <130 mg/dL 07/12/2010 [facility] Calculated 9:41 AM BODY FINISHER [facility] Direct Measure HDL 46 >39 mg/dL 07/12/2010 [facility] 9:41 AM BODY FINISHER [facility] Cholesterol 178 <200 mg/dL 07/12/2010 [facility] 9:41 AM BODY FINISHER [facility] Specimen Anatomical Collection Method Collection Time Receive d Time (Source) Location / / Volume Laterality 07/12/2010 9:41 AM 1 9:41 BODY FINISHER AM BODY FINISHER Malathi Hinojosa MD LAB - BLOOD ORDERABLES Performing Organization Address [facility]/State/ZIP Code Phon e [place] [address] [address] [facility] documented in this encounter Visit Diagnoses Not on filedocumented in this encounter Care Teams Printed Forms Proofreader Relationship Specialty Start Date End Date [facility] PCP - General 10/30/12 03/12/19 [address] [place] [address] No Ref-Primary, Physician PCP - General 03/13/19 Kyung Thornton APRN COMMUNITY SUPPORT SPECIALIST Assigned PCP 02/19/19 06/06/19 [address] [place] [id number] Misha Hill PA-C Assigned PCP 06/07/19 10/10/19 [address] [place] [id number] Kyung Thornton APRN COMMUNITY SUPPORT SPECIALIST Assigned PCP 10/11/19 11/24/20 [address] [place] [id number] documented as of this encounter
--- NOTE | 2022-01-22 07:45 | CRLHL7_ITS ---
For Patients: As a result of the Cures Act, medical imaging exams and procedure reports are released immediately into your electronic medical record. You may view this report before your referring provider. If you have questions, please contact your health care provider. BILATERAL DIAGNOSTIC MAMMOGRAM WITH TOMOSYNTHESIS AND COMPUTER-AIDED DETECTION, 01/22/2022 LEFT BREAST ULTRASOUND, 01/22/2022 CLINICAL HISTORY: LEFT breast pain. COMPARISON: None. TECHNIQUE: Digital BILATERAL mammogram in four projections with computer-aided detection and tomosynthesis. Real-time ultrasound imaging of LEFT breast with imaging documentation. BREAST COMPOSITION: The breasts are heterogeneously dense, which may obscure small masses. FINDINGS: 3D CC/MLO mammogram submitted BILATERALLY. No suspicious masses or architectural distortion. No adenopathy or suspicious calcifications. Targeted LEFT breast ultrasound performed in the area of concern, LEFT breast 8 cm from the nipple. In this location there is a simple circumscribed anechoic cyst measuring 1.5 x 0.8 x 1.4 cm, located at mid depth. An additional cyst at 2 o`clock 9 cm from the nipple is present at posterior depth measuring 0.8 x 0.6 x 1.2 cm. Normal vascularity around the cysts. IMPRESSION: Benign fibrocystic changes in outer aspect of LEFT breast. No evidence of malignancy. RECOMMENDATION: Annual BILATERAL screening mammography. Results and recommendations discussed with the patient. BI-RADS Category 2: Benign A lay language report of this examination will be provided to the patient. Dictated by Kiet Sharpe MD @ 01/22/2022 8:41:[address]/Dictated by: Kiet Sharpe MD @ 01/22/2022 8:41:00 AM CHRISTOPHER/Dictated by: Kiet Sharpe MD @ 01/22/2022 8:41:00 AM (Electronically Signed)
--- NOTE | 2022-01-22 08:15 | CRLHL7_ITS ---
For Patients: As a result of the Cures Act, medical imaging exams and procedure reports are released immediately into your electronic medical record. You may view this report before your referring provider. If you have questions, please contact your health care provider. PLEASE SEE BILATERAL DIAGNOSTIC MAMMOGRAM OF SAME DAY FOR COMBINED REPORT. CRL:alessio RD/Dictated by: Kiet Sharpe MD @ 01/22/2022 8:41:00 AM (Electronically Signed)
== END 2022-01-22 07:32 | disposition home or self-care (01) ==
LOC: MAMMO 07:32
PROVIDERS: Visit Provider Registered Nurse
DX: N64.4 Mastodynia (principal); R92.2 Inconclusive mammogram
CPT/HCPCS: 76642; 77066; G0279